=== PATIENT | female | born 1995 | race American Indian/Alaskan Native ===

== ENCOUNTER 2017-02-03 05:28 | Inpatient (IN) ==
[2017-02-03] MEDS ORDERED: HYDROcodone/APAP 5/325MG TABLET PO ONE ×2 (06:15→06:23)
[2017-02-03] MEDS ORDERED: CALCIUM CHLORIDE 1,000 MG/10 ML SYRINGE IV ONE (07:17)
[2017-02-03 07:32] LABS: Basophils # (Auto) 0 K/mcL (0.0-0.3); Basophils % (Auto) 0.5 % (0.0-2.0); Eosinophils # (Auto) 0 K/mcL (0.0-0.7); Eosinophils % (Auto) 0 % (0.0-7.0); Granulocytes % (Auto) 69.5 % (38.0-78.0); Lymphocytes % (Auto) 18.9 % (15.5-49.0); Mean Cell Volume 91.3 fL (80.0-100.0); Mean Corpuscular HGB Conc 33.2 g/dL (31.0-36.0); Mean Corpuscular Hemoglobin 30.3 pg (26.0-34.0); Monocytes # (Auto) 0.6 K/mcL (0.1-0.9); Monocytes % (Auto) 11.1 % (1.0-12.0); Platelet Count 194 K/mcL (140-440); RBC 2.75 M/mcL (4.00-5.20); Red Cell Distribution Width 17.2 % (11.5-14.5)
[2017-02-03] MEDS ORDERED: SODIUM POLYSTYRENE SULFONATE 15 GM/60 ML SUSPENSION ONE (07:46)
[2017-02-03] MEDS ORDERED: HYDROmorphone 2 MG/ML SYRINGE IV PRN ×2 (08:00→11:29)
--- NOTE | 2017-02-03 08:02 | XRay Report ---
CLINICAL INFORMATION: Pain COMPARISON: None. FINDINGS: The thoracic spine is normal in curvature alignment and disc height. There is no osseous abnormality. There appears be a small amount of airspace disease in the posterior lower lobe of the lateral view - suspect scarring or atelectasis IMPRESSION: Thoracic spine is unremarkable. Airspace disease in the posterior lower lobes on the lateral view. This is likely scar or atelectasis - in the absence of clinical suspicion for pneumonia. Consider two-view chest x-ray Interpreted and Authenticated by: Khris Ramey 02/03/17
[2017-02-03 08:03] LABS: ALT/SGPT 22 U/l (0-40); Albumin 3.2 gm/dL (3.2-5.2); Albumin/Globulin Ratio 1.4 (1.0-2.3); Alkaline Phosphatase 84 U/L (39-117); Blood Urea Nitrogen 89 mg/dl (6-20)
[2017-02-03] MEDS ORDERED: ONDANSETRON 4 MG/2 ML VIAL IV ONE (08:08)
[2017-02-03] MEDS ORDERED: cloNIDine HCL 0.1 MG TABLET PO SCH ×2 (08:45→11:29)
[2017-02-03 08:48] LABS: Appearance,Urine HAZY; Bacteria,Urine 0 /hpf (0); Bilirubin,Urine NEG (NEG); Color,Urine YELLOW; Glucose,Urine (UA) 50 mg/dL (NEG); Leukocyte Esterase,Urine NEG /uL (NEG); Mucus,Urine FEW /hpf (0); Nitrate,Urine NEG (NEG); Protein,Urine 100 mg/dL (NEG); Urine Blood 0.03 mg/dL (<0.03); Urine RBC 1 /hpf (0-1); Urine Squamous Epithelial Cell 6 /hpf (0-4); Urine Transitional Epi Cells 1 /hpf (0-2); Urine WBC 3 /hpf (0-4); Urobilinogen,Urine NEG (NEG)
[2017-02-03] MEDS ORDERED: amLODIPine 5 MG TABLET PO SCH (09:00)
[2017-02-03] MEDS ORDERED: SODIUM POLYSTYRENE SULFONATE 15 GM/60 ML SUSPENSION PO SCH (09:00)
--- NOTE | 2017-02-03 09:11 | Emergency Department Note ---
Back Pain HPI - General Chief Complaint: Back Pain/Injury Stated Complaint: leg and back pain Time Seen by Provider: 02/03/17 06:03 Source: patient Mode of arrival: ambulatory Limitations: no limitations - History of Present Illness HPI Narrative: 21-year-old female patient with stage V kidney disease on peritoneal dialysis comes in complaining of back pain. Pain is in her upper back and she denies any trauma-only takes Tylenol for this pain which is acute on chronic. She is tearful. She also reports that she has not done peritoneal dialysis for at least 5 days now because her machine broke. She tried doing manual dialysis but was unable to make that work with her work schedule. She has some shortness of breath and is now requiring oxygen - Related Data Home Medications Medication Instructions Recorded Confirmed levonorgestrel PO ONCE 08/15/16 12/10/16 polysaccharide iron complex 150 mg 150 mg PO QAM cap 08/15/16 12/10/16 iron capsule calcitriol 0.25 mcg capsule 0.25 mcg PO QDAY 08/18/16 12/10/16 lisinopril 10 mg tablet 10 mg PO QDAY 08/18/16 12/10/16 vitamin B complex-vitamin C-folic 1 tab-cap PO QDAY 08/18/16 12/10/16 acid 0.8 mg tablet Sevelamer [Renvela] 1,600 mg PO TIDCC 11/15/16 12/10/16 amlodipine 10 mg tablet 20 mg PO QDAY tab 12/10/16 12/10/16 Previous Rx's Medication Instructions Recorded cholecalciferol (vitamin D3) 50,000 unit PO QWEEK #12 cap 12/10/16 50,000 unit capsule hydroxychloroquine 200 mg tablet 200 mg PO BID #60 tab 12/10/16 prednisone 5 mg tablet See Label Instructions PO QDAY #70 12/10/16 tab Allergies Allergy/AdvReac Type Severity Reaction Status Date / Time No Known Drug Allergies Allergy Verified 12/10/16 13:21 Review of Systems All systems ED: reviewed and negative except as stated. Past Medical History - Past Medical History Attestation: Yes: The following information was validated with the patient. Medical history: Reports: arthritis (SLE), hypertension, renal disease, seizures Surgical history ED: Reports: other (Dialysis catheter) - Social History smoking status: Never smoker Physical Exam Tearful female. Normal cephalic atraumatic. Conjunctive a bit injected bilaterally no nasal discharge but some congestion audible. Oropharynx pink and moist. Neck is supple without lymphadenopathy or thyromegaly. Heart is tachycardic no murmurs appreciated. Lungs with rales bilaterally. Notable hypoxia having to wear oxygen now. +2 pedal pulse. No pedal edema. Depressed mood. Alert oriented able to answer questions appropriately - General Limitations: no limitations Course Vital Signs Temperature 97.4 F 02/03/17 05:30 Pulse Rate 110 H 02/03/17 05:30 Respiratory Rate 20 02/03/17 05:30 Blood Pressure 190/135 02/03/17 05:30 Pulse Oximetry (%) 92 02/03/17 05:30 Temperature 97.4 F 02/03/17 05:30 Pulse Rate 104 H 02/03/17 08:53 Respiratory Rate 18 02/03/17 08:53 Blood Pressure 185/135 02/03/17 08:53 Pulse Oximetry (%) 97 02/03/17 09:00 Back Pain/Injury - Lab Data Lab results reviewed: Yes I reviewed the patient's lab results. Result diagrams: 02/03/17 06:23 02/03/17 06:23 Lab Results 02/03/17 02/03/17 02/03/17 Range/Units 06:23 06:23 06:23 WBC 5.5 (4.5-11.0) K/mcL RBC 2.75 L (4.00-5.20) M/mcL Hgb 8.3 L (12.0-15.0) g/dL Hct 25.1 L (36.0-48.0) % POC Hct 23.0 L (36.0-48.0) % MCV 91.3 (80.0-100.0) fL MCH 30.3 (26.0-34.0) pg MCHC 33.2 (31.0-36.0) g/dL RDW 17.2 H (11.5-14.5) % Plt Count 194 (140-440) K/mcL MPV 8.8 (7.4-10.4) fL Gran % 69.5 (38.0-78.0) % Lymph % (Auto) 18.9 (15.5-49.0) % [place] % (Auto) 11.1 (1.0-12.0) % Eos % (Auto) 0 (0.0-7.0) % Baso % (Auto) 0.5 (0.0-2.0) % Gran # 3.8 (1.8-8.0) K/mcL Lymph # 1.0 L (1.5-4.8) K/mcL [place] # 0.6 (0.1-0.9) K/mcL Eos # 0 (0.0-0.7) K/mcL Baso # 0 (0.0-0.3) K/mcL POC Sodium 125 L (133-145) mmol/L Sodium 127 L (133-145) mmol/L POC Potassium 5.6 H (3.3-5.1) mmol/L Potassium 5.9 H* (3.3-5.1) mmol/L POC Chloride 91 L (96-108) mmol/L Chloride 85 L (96-108) mmol/L Carbon Dioxide 21 L (22-30) mmol/L POC Total CO2 22 (22-30) mmol/L Anion Gap 21.0 H (8-16) POC BUN 100 H (6-20) mg/dl BUN 89 H (6-20) mg/dl Creatinine 16.0 H* (0.6-1.1) mg/dl POC Creatinine 17.7 H* (0.6-1.1) mg/dl GFR Calculation 3 Glucose 84 (70-105) mg/dL POC Glucose 83 (70-105) mg/dL Calcium 10.0 (8.6-10.4) mg/dl POC WB Ioniz Calcium 1.22 (1.16-1.32) mmol/L Magnesium 3.0 H (1.6-2.5) mg/dL Total Bilirubin 0.5 (0.0-1.0) mg/dL AST 24 (0-37) U/l ALT 22 (0-40) U/l Alkaline Phosphatase 84 (39-117) U/L Total Protein 5.5 L (5.9-8.4) gm/dL Albumin 3.2 (3.2-5.2) gm/dL Globulin 2.3 (2.2-3.7) gm/dL Albumin/Globulin Ratio 1.4 (1.0-2.3) Urine Color Urine Appearance Urine pH (5.0-9.0) Ur Specific [place] (1.000-1.035) Urine Protein (NEG) mg/dL Urine Glucose (UA) (NEG) mg/dL Urine Ketones (NEG) mg/dL Urine Occult Blood (<0.03) mg/dL Urine Nitrate (NEG) Urine Bilirubin (NEG) mg/dL Urine Urobilinogen (NEG) mg/dL Ur Leukocyte Esterase (NEG) /uL Urine RBC (0-1) /hpf Urine WBC (0-4) /hpf Ur Squamous Epith Cells (0-4) /hpf Ur Transition Epith Cell (0-2) /hpf Urine Bacteria (0) /hpf Urine Mucus (0) /hpf Ur Culture Indicated? 02/03/17 Range/Units 08:09 WBC (4.5-11.0) K/mcL RBC (4.00-5.20) M/mcL Hgb (12.0-15.0) g/dL Hct (36.0-48.0) % POC Hct (36.0-48.0) % MCV (80.0-100.0) fL MCH (26.0-34.0) pg MCHC (31.0-36.0) g/dL RDW (11.5-14.5) % Plt Count (140-440) K/mcL MPV (7.4-10.4) fL Gran % (38.0-78.0) % Lymph % (Auto) (15.5-49.0) % [place] % (Auto) (1.0-12.0) % Eos % (Auto) (0.0-7.0) % Baso % (Auto) (0.0-2.0) % Gran # (1.8-8.0) K/mcL Lymph # (1.5-4.8) K/mcL [place] # (0.1-0.9) K/mcL Eos # (0.0-0.7) K/mcL Baso # (0.0-0.3) K/mcL POC Sodium (133-145) mmol/L Sodium (133-145) mmol/L POC Potassium (3.3-5.1) mmol/L Potassium (3.3-5.1) mmol/L POC Chloride (96-108) mmol/L Chloride (96-108) mmol/L Carbon Dioxide (22-30) mmol/L POC Total CO2 (22-30) mmol/L Anion Gap (8-16) POC BUN (6-20) mg/dl BUN (6-20) mg/dl Creatinine (0.6-1.1) mg/dl POC Creatinine (0.6-1.1) mg/dl GFR Calculation Glucose (70-105) mg/dL POC Glucose (70-105) mg/dL Calcium (8.6-10.4) mg/dl POC WB Ioniz Calcium (1.16-1.32) mmol/L Magnesium (1.6-2.5) mg/dL Total Bilirubin (0.0-1.0) mg/dL AST (0-37) U/l ALT (0-40) U/l Alkaline Phosphatase (39-117) U/L Total Protein (5.9-8.4) gm/dL Albumin (3.2-5.2) gm/dL Globulin (2.2-3.7) gm/dL Albumin/Globulin Ratio (1.0-2.3) Urine Color Yellow Urine Appearance Hazy Urine pH 8.0 (5.0-9.0) Ur Specific [place] 1.010 (1.000-1.035) Urine Protein 100 A (NEG) mg/dL Urine Glucose (UA) 50 A (NEG) mg/dL Urine Ketones Neg (NEG) mg/dL Urine Occult Blood 0.03 A (<0.03) mg/dL Urine Nitrate Neg (NEG) Urine Bilirubin Neg (NEG) mg/dL Urine Urobilinogen Neg (NEG) mg/dL Ur Leukocyte Esterase Neg (NEG) /uL Urine RBC 1 (0-1) /hpf Urine WBC 3 (0-4) /hpf Ur Squamous Epith Cells 6 H (0-4) /hpf Ur Transition Epith Cell 1 (0-2) /hpf Urine Bacteria 0 (0) /hpf Urine Mucus Few (0) /hpf Ur Culture Indicated? No ABG shows pH 7.51 PCO2 28 and PO2 of 91 - Radiology Data Radiology results reviewed: Yes I reviewed the patient's radiology results. Chest x-ray shows pulmonary venous congestion plus or minus infiltrate- Thoracic spine x-ray shows early osteoarthrosis as well as above-mentioned pulmonary venous congestion - EKG Data EKG attestation: Yes I reviewed and interpreted this EKG. EKG results narrative: EKG shows a rate of 100 with 1 PAC otherwise normal sinus tachycardia Disposition Clinical Impression: Hyperkalemia, Hypermagnesemia, Hypoxia Acute renal failure superimposed on stage 5 chronic kidney disease, not on chronic dialysis Qualifiers: Acute renal failure type: unspecified Qualified Code(s): N17.9 - Acute kidney failure, unspecified; N18.5 - Chronic kidney disease, stage 5 Summary: Thoracic back pain treated with pain medicine. Requiring oxygen now Found to be fluid overloaded missing dialysis-this is causing significant hypoxia and requires emergent dialysis. Also significant electrolyte abnormalities noted. Started medicines for hyperkalemia; however limited as she is not making much urine. Small urine sample obtained by catheterization. Bladder scan revealed no significant urine collection Discussed situation with Dr. Renee agreed to consult on the patient for urgent dialysis. Discussed patient with Dr. Mayer agreed to accept for inpatient care Disposition: Xfer As Inpt ([facility]) Condition: Undetermined Referrals: James Jeter MD [Primary Care Provider] -
--- NOTE | 2017-02-03 11:08 | XRay Report ---
CLINICAL INFORMATION: shortness of breath. History of lupus COMPARISON: None. FINDINGS: The heart is mildly enlarged. Mediastinum and pulmonary vasculature are normal. There are moderate right and small to moderate left bibasilar alveolar infiltrates extending into the bases. Small right pleural effusion is noted. Bones and soft tissues are normal. IMPRESSION: Moderate right and small left basilar infiltrate. Mild enlargement of the cardiac silhouette. With history of lupus, patient could have a pericardial effusion - consider echocardiogram Interpreted and Authenticated by: Khris Ramey 02/03/17
[2017-02-03] MEDS ORDERED: SODIUM POLYSTYRENE SULFONATE 15 GM/60 ML SUSPENSION PO ONE (11:18)
[2017-02-03] MEDS ORDERED: NALOXONE HCL 0.4 MG/ML VIAL IV PRN (11:29)
[2017-02-03] MEDS ORDERED: FUROSEMIDE 100 MG/10 ML VIAL IV ONE (11:52)
[2017-02-03] MEDS: 0.9 % SODIUM CHLORIDE 10 ML SYRINGE IV SCH ×2 (12:12→21:54)
--- NOTE | 2017-02-03 12:58 | Nephrology Consult Note ---
History of Present Illness - Reason for Consult Patient information: Note initiated : 02/03/17 at 12:54 pm Service Date, if different from initiated Date: [] Patient: Tigist Villagomez a 21 y/o F admitted on 02/03/17 for Leg/Back Pain. Chief Complaint: [] Consult date: 02/03/17 end stage renal disease, hyperkalemia Requesting physician: Sarabjit Perales - Chief Complaint back pain - History of Present Illness Ms Villagomez is a 21 y/o female with PMH of ESRD on PD, HTN, SLE and other medical issues who is admitted with pulmonary edema and hyperkalemia Patient initially presented to the ED early this am because of upper back pain that started last night, no h/o trauma. On evaluation patient complained that she has not dialysed since last Thursday because of her cycler broke. She has only one manual exchange since as she works at [employer] and given her work schedule she has not been able to do this She now c/o SOB, LE edema c/o cough with pink colored sputum She denies CP, fever no dizziness does not make much urine She has a h/o non compliance, was hospitalised in November with fluid overload as well from non compliance to PD Review of Systems All systems PM: reviewed and no additional remarkable complaints except as stated ( IN hpi) Past History Past medical history: SLE, also has + MPO antibodies but no e/o vasculitis on renal biopsy per rheumatology notes She has h/o ESRD from lupus and she on PD for this She has h/o uncontrolled HTN, on amlodipine 10mg bid and lsiinopril anemia of CKD renal osteodystrophy Past surgical history: h/o tunneled cath placement h/o PD cath insertion Past family history: father has h/o cancer Past social history: no addictions Medications and Allergies Home Medications Medication Instructions Recorded Confirmed Type levonorgestrel PO ONCE 08/15/16 12/10/16 History polysaccharide iron complex 150 mg 150 mg PO QAM cap 08/15/16 12/10/16 History iron capsule calcitriol 0.25 mcg capsule 0.25 mcg PO QDAY 08/18/16 12/10/16 History lisinopril 10 mg tablet 10 mg PO QDAY 08/18/16 12/10/16 History vitamin B complex-vitamin C-folic 1 tab-cap PO QDAY 08/18/16 12/10/16 History acid 0.8 mg tablet Sevelamer [Renvela] 1,600 mg PO TIDCC 11/15/16 12/10/16 History amlodipine 10 mg tablet 20 mg PO QDAY tab 12/10/16 12/10/16 History cholecalciferol (vitamin D3) 50,000 unit PO QWEEK #12 cap 12/10/16 12/10/16 Rx 50,000 unit capsule hydroxychloroquine 200 mg tablet 200 mg PO BID #60 tab 12/10/16 12/10/16 Rx prednisone 5 mg tablet See Label Instructions PO QDAY #70 12/10/16 12/10/16 Rx tab Allergies Allergy/AdvReac Type Severity Reaction Status Date / Time No Known Drug Allergies Allergy Verified 12/10/16 13:21 Exam - Vital Signs Vital signs: Temp Pulse Resp BP Pulse Ox 97.4 F 111 H 30 H 170/133 92 02/03/17 05:30 02/03/17 11:15 02/03/17 11:15 02/03/17 11:15 02/03/17 11:15 - General Appearance General appearance: appears started age, chronically ill EENT: mucous membranes moist Neck: JVD Respiratory: rales Cardiology: mid-systolic murmur, no rub, edema, normal S1, normal S2 Gastrointestinal: no tenderness (PD exit site look clean with no s/o infection) , no guarding Integumentary: no rash, warm and dry Neurologic: alert and oriented x3 Musculoskeletal: no erythema Psychiatric: mood/affect appropriate Results - Lab Results 02/03/17 06:23 02/03/17 06:23 Most recent lab results Calcium 10.0 mg/dl (8.6-10.4) 02/03/17 06:23 Magnesium 3.0 mg/dL (1.6-2.5) H 02/03/17 06:23 Assessment and Plan (1) ESRD (end stage renal disease) on dialysis ESRD in peritoneal dialysis patient with significant fluid overload with hyperkalemia from non compliance to dialysis given this urgent PD initiated, PD received one exchange with 2.5% dextrose while in PD, we will switch her to cycler and use 4.25% and 2.5% alternate cycle , toal 4 cycles, 9 hour total time on cycler with 1hr 52 min dwell time and fill volume of 2L per pt prescription she has received medications for hyperkalemia, kayexalate and lasix will hold off on lisinopril until K is under control will recheck labs later today will monitor closely if not able to achieve adequate UF will place temp cath and do dialysis uncontrolled HTN: this needs to be better controlled She will continue with home medications will add clonidine or labetalol to her home meds Anemia of CKD: Will monitor she may need aranesp this hospital stay but will obtain work up first Renal osteodystrophy: will continue renvela with meals Status: Acute
[2017-02-03] MEDS ORDERED: niCARdipine 25 MG in 0.9 % SODIUM CHLORIDE 240 ML IV SCH (13:00)
[2017-02-03] MEDS: ONDANSETRON 4 MG/2 ML VIAL IV PRN ×2 (14:11→19:47)
[2017-02-03] MEDS: HYDROmorphone 2 MG/ML SYRINGE IV PRN ×2 (15:31→18:09)
--- NOTE | 2017-02-03 18:11 | Internal Med History&Physical ---
Medical - H&P: HPI Patient information: Note initiated : 02/03/17 at 6:09 pm Service Date, if different from initiated Date: [] Patient: Tigist Villagomez a 21 y/o F admitted on 02/03/17 for Leg/Back Pain. Chief Complaint: [] History of present illness: Ms. Villagomez is a 21 year old female with h/o lupus, presented to the ER today with shortness of breath x 1 day, weakness and swelling. the patient has h/o lupus complicated by renal failure, on dialysis via PD. The patient had PD dialysis on Thursday, after which she broke her machine. She did a manual run on yesterday x1, because she had to work, but since yesterday evening has not been feeling well. she is weak tired, fatigued, feels swollowen. She admits to be nauseas and vomiting x 1. The patient in the ER was noted to have elevated creat, fluid overload with hypoxia, tachypnea. the patient also reports some cough with whitish yellow sputum with some pinkish tinge, but no fever or chills. She has chr lupus related pain in the chest, back and her legs which is unchanged. She denies headache, has chr visual changes, no hearing issues, no difficulty in swallowing, no diarrhea or constipation. She admits to having some urinary urgency and doubts if she has UTI. 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 Medical - H&P: Meds Home Medications Medication Instructions Recorded Confirmed Type levonorgestrel PO ONCE 08/15/16 12/10/16 History polysaccharide iron complex 150 mg 150 mg PO QAM cap 08/15/16 12/10/16 History iron capsule calcitriol 0.25 mcg capsule 0.5 mcg PO DAILY 08/18/16 02/03/17 History lisinopril 10 mg tablet 10 mg PO DAILY 08/18/16 02/03/17 History vitamin B complex-vitamin C-folic 1 tab-cap PO QDAY 08/18/16 02/03/17 History acid 0.8 mg tablet Sevelamer [Renvela] 1,600 mg PO TIDCC 11/15/16 02/03/17 History cholecalciferol (vitamin D3) 50,000 unit PO QWEEK #12 cap 12/10/16 02/03/17 Rx 50,000 unit capsule hydroxychloroquine 200 mg tablet 200 mg PO BID #60 tab 12/10/16 02/03/17 Rx Calcium Carbonate [Tums] 1,000 mg CHEWED TIDCC 02/03/17 02/03/17 History Carboxymethylcellulose Sodium 15 ml OP 3-4XD PRN 02/03/17 02/03/17 History [Lubricant Eye] Docusate Sodium 100 mg PO DAILY 02/03/17 02/03/17 History Furosemide [Lasix] 80 mg PO DAILY 02/03/17 02/03/17 History Mineral Oil/Petrolatum,White 3.5 gm OP HSP PRN 02/03/17 02/03/17 History [Lubricant Eye Ointment] amLODIPine [Norvasc] 5 mg PO DAILY 02/03/17 02/03/17 History Allergies Allergy/AdvReac Type Severity Reaction Status Date / Time No Known Drug Allergies Allergy Verified 12/10/16 13:21 Medical - H&P: Exam - Constitutional Vitals: Temp Pulse Resp BP Pulse Ox 98.7 F 111 H 19 139/99 91 02/03/17 16:00 02/03/17 17:41 02/03/17 18:07 02/03/17 18:01 02/03/17 17:41 Exam: GENERAL: The patient is a well-developed, well-nourished in mild distress. Is alert and oriented x3. VITAL SIGNS: Reviewed and as noted elsewhere. HEENT: Head is normocephalic and atraumatic. Extraocular muscles are intact. Pupils are equal, round, and reactive to light. Nares appeared normal. Mouth appears any without lesions. Mucous membranes are moist. elena puffiness around eyelids NECK: Normal to inspection, Supple, No lymphadenopathy or thyromegaly. LUNGS: Air entry equal on both sides, no wheezing, crackles or rhonchi noted. No accessory muscles of respiration HEART: tachycardic rate and rhythm normal, S1 and S2 heard, no Gallop, S3 or Rub Noted, No Gross murmur heard. ABDOMEN: Soft, nontender, and nondistended. Positive bowel sounds. No hepatosplenomegaly was noted. EXTREMITIES: No cyanosis, clubbing, rash, lesions. Elena edema noted ++ NEUROLOGIC: Cranial nerves II through XII are grossly intact. Motor and Sensory System Grossly Intact PSYCHIATRIC: Normal affect, Normal Mood. Appropriate Behavior. SKIN: No ulceration or wounds noted, No jaundice, No rash noted. Medical - H&P: Reslt - Labs CBC & Chem 7: 02/03/17 06:23 02/03/17 06:23 Medical - H&P: A/P - Narrative A/P Narrative: ESRD: On PD, nephrology consulted, Hypertensive emergency: IV nicardipine drip for now, resume home meds once verified, wean off drip as tolerated. SLE: Resume home meds when verified. patient notes she has not taken prednisone for over 30 days Acute pulmonary edema: Noted on X ray IV lasix, PD initiated by Nephrology Hyperkalemia: medical management and PD Pneumonia: reported on CXR, however pt does have fluid overload too, will get procalcitonin, blood cultures and give one dose of IV zithromax and rocephin, Repeat CXR in AM DVT hep sq Diet Renal diet. Full Code. Medical - H&P: Qual - VTE Deep Vein Thrombosis/Pulmonary Embolism Present on Admission: No Social History - Tobacco smoking status: Never smoker - Alcohol alcohol intake frequency: does not drink - Substance use substance use type: does not use
[2017-02-03] MEDS ORDERED: AZITHROMYCIN 500 MG in DEXTROSE 5% IN WATER 250 ML IV ONE (18:23)
[2017-02-03] MEDS ORDERED: cefTRIAXone 1 GM in DEXTROSE 5% IN WATER 50 ML IV ONE (18:23)
[2017-02-03 18:39] LABS: Blood Urea Nitrogen 81 mg/dl (6-20)
[2017-02-03] MEDS ORDERED: CARBOXYMETHYLCELLULOSE SODIUM OU PRN (19:30)
[2017-02-03] MEDS ORDERED: LUBRICANT EYE OU PRN (19:45)
[2017-02-03] MEDS ORDERED: cefTRIAXone 1 GM VIAL ONE (19:45)
[2017-02-03] MEDS: CARVEDILOL 6.25 MG TABLET PO SCH ×2 (19:47→19:48)
[2017-02-03] MEDS: LISINOPRIL 10 MG TABLET PO SCH (19:47)
[2017-02-03] MEDS: ACETAMINOPHEN 325 MG TABLET PO PRN (19:47)
[2017-02-03] MEDS ORDERED: FAMOTIDINE/PF 20 MG/2 ML VIAL IV SCH (21:00)
[2017-02-03] MEDS: HYDROXYCHLOROQUINE 200 MG TABLET PO SCH (21:04)
[2017-02-03] MEDS: SODIUM POLYSTYRENE SULFONATE 15 GM/60 ML SUSPENSION PO SCH (21:04)
[2017-02-03] MEDS: HEPARIN 5,000 UNIT/ML VIAL SQ SCH (21:04)
[2017-02-03] MEDS ORDERED: PROMETHAZINE 25 MG/ML VIAL IV PRN (21:26)
[2017-02-03] MEDS ORDERED: PROMETHAZINE 25 MG/ML VIAL ONE (21:49)
[2017-02-03] MEDS: PANTOPRAZOLE 40 MG VIAL IV SCH (22:11)
[2017-02-03] MEDS: cloNIDine HCL 0.1 MG TABLET PO PRN (23:50)
[2017-02-04] MEDS: 0.9 % SODIUM CHLORIDE 10 ML SYRINGE IV SCH ×4 (05:27→20:55)
[2017-02-04 05:33] LABS: Basophils # (Auto) 0 K/mcL (0.0-0.3); Basophils % (Auto) 0.5 % (0.0-2.0); Eosinophils # (Auto) 0 K/mcL (0.0-0.7); Eosinophils % (Auto) 0 % (0.0-7.0); Granulocytes % (Auto) 76.6 % (38.0-78.0); Lymphocytes # (Auto) 0.6 K/mcL (1.5-4.8); Lymphocytes % (Auto) 14.6 % (15.5-49.0); Mean Cell Volume 91.2 fL (80.0-100.0); Monocytes # (Auto) 0.3 K/mcL (0.1-0.9); Monocytes % (Auto) 8.3 % (1.0-12.0); Platelet Count 198 K/mcL (140-440); RBC 2.53 M/mcL (4.00-5.20); Red Cell Distribution Width 17.1 % (11.5-14.5)
[2017-02-04 06:47] LABS: ALT/SGPT 18 U/l (0-40); Albumin 2.9 gm/dL (3.2-5.2); Albumin/Globulin Ratio 1.4 (1.0-2.3); Alkaline Phosphatase 48 U/L (39-117); Bilirubin,Direct 0.2 mg/dL (0.0-0.3); Blood Urea Nitrogen 75 mg/dl (6-20); Gamma Glutamyl Transpeptidase 14 U/L (5-36); Magnesium 2.7 mg/dL (1.6-2.5); Uric Acid 4.3 mg/dL (2.5-8.0)
[2017-02-04] MEDS: PANTOPRAZOLE 40 MG VIAL IV SCH (08:29)
--- NOTE | 2017-02-04 08:33 | Nephrology Progress Note ---
Subjective Patient information: Note initiated : 02/04/17 at 8:30 am Service Date, if different from initiated Date: [] Patient: Tigist Villagomez 21 y/o F admitted on 02/03/17 for Leg/Back Pain. Chief Complaint: [] Principal diagnosis: fluid overload Interval history: PD done yesterday, 2400cc net UF achieved Patient feeling much better today She denies worsening SOB, edema much improved BP control still an issues but did not get a lot of her meds no CP No GI symptoms no dizziness Pertinent ROS: as above Objective - Vital Signs Vital signs: Vital Signs Temp Pulse Pulse Resp BP BP Pulse Ox 02/04/17 06:55 98 H 19 97 02/04/17 06:01 102 H 21 151/114 92 02/04/17 06:00 102 H 16 151/114 93 02/04/17 05:01 95 H 17 149/108 90 02/04/17 05:00 98 H 14 149/108 94 02/04/17 04:31 98 H 23 H 142/106 92 02/04/17 04:01 98 H 16 138/108 88 L 02/04/17 04:00 97.9 F 97 H 18 138/108 94 02/04/17 03:31 93 H 15 133/106 92 02/04/17 03:01 93 H 15 140/104 94 02/04/17 03:00 93 H 16 140/104 93 02/04/17 02:31 90 16 131/98 93 02/04/17 02:01 87 15 128/96 96 02/04/17 02:00 89 16 128/96 93 02/04/17 01:31 88 15 125/96 94 02/04/17 01:01 88 15 127/97 95 02/04/17 01:00 88 16 127/97 95 02/04/17 00:31 100 H 19 147/121 100 02/04/17 00:00 98.7 F 102 H 20 147/121 100 02/03/17 23:46 142/112 02/03/17 23:31 91 H 12 157/121 100 02/03/17 23:01 88 16 141/111 97 02/03/17 23:00 91 H 14 141/111 99 02/03/17 22:51 92 H 24 H 143/110 93 02/03/17 22:00 94 H 17 143/110 95 05/23/17 21:01 99 H 13 120/94 91 02/03/17 21:00 101 H 17 120/94 91 02/03/17 20:31 113 H 19 142/115 100 02/03/17 20:01 106 H 17 140/107 98 02/03/17 20:00 98.2 F 107 H 18 140/107 97 02/03/17 19:21 109 H 17 144/110 97 02/03/17 19:11 111 H 20 145/108 92 02/03/17 19:01 111 H 26 H 133/98 95 02/03/17 19:00 113 H 21 133/98 90 02/03/17 18:55 115 H 17 140/106 93 02/03/17 18:41 114 H 17 149/106 95 02/03/17 18:31 113 H 19 140/109 89 L 02/03/17 18:21 22 144/101 02/03/17 18:11 19 143/108 02/03/17 18:07 19 02/03/17 18:01 139/99 02/03/17 18:00 18 139/99 91 02/03/17 17:56 19 139/99 02/03/17 17:55 20 02/03/17 17:51 21 143/104 02/03/17 17:41 111 H 18 142/104 91 02/03/17 17:31 109 H 20 145/107 92 02/03/17 17:21 111 H 21 143/107 92 02/03/17 17:11 115 H 20 138/99 96 02/03/17 17:01 113 H 19 142/100 91 02/03/17 17:00 20 142/100 91 02/03/17 16:51 114 H 19 139/102 91 02/03/17 16:41 114 H 19 144/97 91 02/03/17 16:31 115 H 19 145/100 90 02/03/17 16:21 114 H 20 147/104 91 02/03/17 16:11 112 H 24 H 149/109 94 02/03/17 16:08 110 H 22 91 02/03/17 16:07 114 H 26 H 88 L 02/03/17 16:06 110 H 32 H 94 02/03/17 16:01 105 H 17 167/115 93 02/03/17 16:00 98.7 F 16 167/115 90 02/03/17 15:51 107 H 24 H 168/120 91 02/03/17 15:41 109 H 16 168/125 93 02/03/17 15:36 106 H 23 H 155/112 96 02/03/17 15:31 106 H 20 160/116 94 02/03/17 15:26 109 H 20 160/112 86 L 02/03/17 15:21 111 H 26 H 147/117 89 L 02/03/17 15:16 109 H 22 152/119 92 02/03/17 15:11 109 H 21 153/115 93 02/03/17 15:10 20 145/108 92 02/03/17 15:06 113 H 21 143/107 92 02/03/17 15:01 113 H 26 H 145/108 95 02/03/17 14:56 114 H 20 139/103 93 02/03/17 14:51 110 H 17 147/112 94 02/03/17 14:46 109 H 17 146/108 95 02/03/17 14:41 108 H 18 152/114 95 02/03/17 14:36 106 H 20 160/119 96 02/03/17 14:33 107 H 19 155/121 95 02/03/17 14:31 109 H 19 154/115 95 02/03/17 14:16 112 H 20 156/118 89 L 02/03/17 14:11 122 H 33 H 148/109 87 L 02/03/17 14:07 124 H 15 149/108 80 L 02/03/17 14:00 20 142/108 02/03/17 13:56 33 H 142/108 02/03/17 13:52 113 H 21 156/113 88 L 02/03/17 13:49 111 H 22 155/115 88 L 02/03/17 13:46 111 H 22 156/121 89 L 02/03/17 13:42 104 H 21 176/131 91 02/03/17 13:40 105 H 22 178/132 90 02/03/17 13:39 104 H 21 177/127 91 02/03/17 13:31 103 H 23 H 174/131 90 02/03/17 13:16 105 H 22 175/126 87 L 02/03/17 13:01 104 H 22 171/133 92 02/03/17 13:00 22 171/133 91 02/03/17 12:46 106 H 26 H 169/132 91 02/03/17 12:31 110 H 24 H 178/132 82 L 02/03/17 12:16 102 H 22 174/124 90 02/03/17 12:01 106 H 22 174/132 92 02/03/17 12:00 98.0 F 174/124 92 02/03/17 11:46 104 H 18 169/129 90 02/03/17 11:31 107 H 21 176/130 95 Intake and Output 02/03/17 02/04/17 02/04/17 21:59 05:59 13:59 Intake Total 125 / 125 720 / 720 Output Total Balance 124 / 124 720 / 720 Intake: IV 125 / 125 Cardene 25 MG In Sodium 125 / 125 Chloride 0.9% 240 ml @ 5 MG/HR 50 mls/hr IV ONCE RAÚL Rx#:[id number] Oral 0 / 0 720 / 720 Output: Void Amount 0 / 0 # of times incontinent of / 1 urine Other: Net Peritoneal UF 2400 Weight 121 lb 3.2 oz Intake & Output: Intake & Output 02/03/17 02/04/17 02/04/17 21:59 05:59 13:59 Intake Total 125 / 125 720 / 720 Output Total Balance 124 / 124 720 / 720 Weight 121 lb 3.2 oz Intake: IV 125 / 125 Cardene 25 MG In Sodium 125 / 125 Chloride 0.9% 240 ml @ 5 MG/HR 50 mls/hr IV ONCE RAÚL Rx#:[id number] Oral 0 / 0 720 / 720 Output: Void Amount 0 / 0 # of times incontinent of 1 / 1 urine Other: Net Peritoneal UF 2400 - General Appearance General appearance: appears started age, chronically ill EENT: mucous membranes moist Neck: no JVD Respiratory: clear Cardiology: no rub, no edema, normal S1, normal S2 Gastrointestinal: no tenderness, no guarding Integumentary: no rash, warm and dry Neurologic: alert and oriented x3 Musculoskeletal: no deformities, no erythema Psychiatric: mood/affect appropriate - Lab 02/04/17 04:04 02/04/17 04:04 Most recent lab results Calcium 8.9 mg/dl (8.6-10.4) 02/04/17 04:04 Phosphorus 6.1 mg/dL (2.7-4.5) H* 02/04/17 04:04 Magnesium 2.7 mg/dL (1.6-2.5) H 02/04/17 04:04 Assessment and Plan (1) ESRD (end stage renal disease) on dialysis Patient on peritoneal dialysis with issues with non compliance states misses PD on and off because of work issues or at times have to cut short on treatment Her fluid status is a little better today K still 5.5, on ACEI BP control still suboptimal Patient also has anemia with mild leucopenia: will obtain work up and also confirm no ongoing lupus activity as she is off steroids, has leucopenia and anemia plan: PD today again, will use on 3 cycles of 2.5% and one cycle of 4.25% on cycler with fill volume of 2L, dwell time of 1hr 52 min and total time of 9 hrs Will obtain anemia work up will continue with lisinopril, coreg and amlodipine today and follow BP and optimize meds if needed if continues to have persistent hyperkalemia then will consider holding lisinopril monitor I/O, daily weights dose meds per PD Will follow along Appreciate hospitalist help in managing this patient Status: Acute
[2017-02-04] MEDS: CALCITRIOL 0.25 MCG CAPSULE PO SCH (08:46)
[2017-02-04] MEDS: SEVELAMER 800 MG TABLET PO SCH ×3 (08:47→16:54)
[2017-02-04] MEDS: FUROSEMIDE 40 MG TABLET PO SCH (08:47)
[2017-02-04] MEDS: CARVEDILOL 6.25 MG TABLET PO SCH ×2 (08:47→16:56)
[2017-02-04] MEDS: HYDROXYCHLOROQUINE 200 MG TABLET PO SCH ×2 (08:47→20:54)
[2017-02-04] MEDS: CALCIUM CARBONATE 500 MG TAB.CHEW CHEWED SCH ×3 (08:48→16:54)
[2017-02-04] MEDS: amLODIPine 5 MG TABLET PO SCH (08:48)
[2017-02-04] MEDS: HEPARIN 5,000 UNIT/ML VIAL SQ SCH ×2 (08:48→20:54)
--- NOTE | 2017-02-04 08:48 | XRay Report ---
CLINICAL INFORMATION: Follow up infiltrate COMPARISON: 02/03/2017 FINDINGS: Mild enlargement of the cardiac silhouette is unchanged. The mediastinum and pulmonary vessels are normal. Bilateral mid/lower lung infiltrates have improved markedly since previous study with minimal vague residual. Small bilateral pleural effusions persist. IMPRESSION: Marked improvement in bilateral mid/lower lung infiltrates since yesterday's study Mild enlargement of the cardiac silhouette is stable. No evidence of CHF or volume overload Interpreted and Authenticated by: Khris Ramey 02/04/17
[2017-02-04] MEDS: DOCUSATE SODIUM 100 MG CAPSULE PO SCH (08:50)
[2017-02-04] MEDS: SODIUM POLYSTYRENE SULFONATE 15 GM/60 ML SUSPENSION PO SCH (08:50)
[2017-02-04] MEDS: LISINOPRIL 10 MG TABLET PO SCH (08:54)
[2017-02-04] MEDS: cefTRIAXone 1 GM in DEXTROSE 5% IN WATER 50 ML IV SCH (08:57)
[2017-02-04] MEDS ORDERED: LISINOPRIL 10 MG TABLET PO SCH (09:00)
[2017-02-04 09:49] LABS: Complement C3 59.6 mg/dl (90-180)
[2017-02-04 09:51] LABS: Iron 80 mcg/dl (37-145); Transferrin % Saturation 60 % (15-50); Unsaturated Iron Binding 53 mcg/dL (112-346)
[2017-02-04 09:58] LABS: Ferritin 909.5 ng/ml (13-150)
[2017-02-04 10:07] LABS: Vitamin B12 286.7 pg/ml (243-894)
[2017-02-04] MEDS: FOLIC ACID/VITAMIN B COMP W-C 1 TAB TABLET PO SCH (11:52)
[2017-02-04] MEDS: AZITHROMYCIN 250 MG in DEXTROSE 5% IN WATER 250 ML IV SCH (11:53)
[2017-02-04] MEDS: ACETAMINOPHEN 325 MG TABLET PO PRN (20:54)
[2017-02-04] MEDS: HYDROmorphone 2 MG/ML SYRINGE IV PRN (22:41)
[2017-02-04] MEDS: cloNIDine HCL 0.1 MG TABLET PO PRN (23:02)
[2017-02-05] MEDS: HYDROmorphone 2 MG/ML SYRINGE IV PRN ×2 (04:16→09:22)
[2017-02-05 05:36] LABS: Basophils # (Auto) 0 K/mcL (0.0-0.3); Basophils % (Auto) 0.6 % (0.0-2.0); Eosinophils # (Auto) 0 K/mcL (0.0-0.7); Eosinophils % (Auto) 0 % (0.0-7.0); Lymphocytes # (Auto) 0.9 K/mcL (1.5-4.8); Lymphocytes % (Auto) 31.1 % (15.5-49.0); Mean Cell Volume 92.1 fL (80.0-100.0); Mean Corpuscular HGB Conc 33.5 g/dL (31.0-36.0); Mean Corpuscular Hemoglobin 30.8 pg (26.0-34.0); Monocytes # (Auto) 0.4 K/mcL (0.1-0.9); Monocytes % (Auto) 13.3 % (1.0-12.0); Platelet Count 182 K/mcL (140-440); RBC 2.48 M/mcL (4.00-5.20); Red Cell Distribution Width 17.5 % (11.5-14.5)
[2017-02-05] MEDS: 0.9 % SODIUM CHLORIDE 10 ML SYRINGE IV SCH ×3 (05:43→21:30)
[2017-02-05 06:16] LABS: ALT/SGPT 18 U/l (0-40); Albumin/Globulin Ratio 1.4 (1.0-2.3); Alkaline Phosphatase 47 U/L (39-117); Bilirubin,Direct 0.2 mg/dL (0.0-0.3); Blood Urea Nitrogen 71 mg/dl (6-20); Gamma Glutamyl Transpeptidase 15 U/L (5-36); Magnesium 2.6 mg/dL (1.6-2.5); Uric Acid 4.8 mg/dL (2.5-8.0)
[2017-02-05] MEDS: DOCUSATE SODIUM 100 MG CAPSULE PO SCH (08:42)
[2017-02-05] MEDS: SEVELAMER 800 MG TABLET PO SCH ×4 (08:47→21:29)
[2017-02-05] MEDS: PANTOPRAZOLE 40 MG VIAL IV SCH (08:47)
[2017-02-05] MEDS: CALCIUM CARBONATE 500 MG TAB.CHEW CHEWED SCH ×4 (08:47→21:29)
[2017-02-05] MEDS: CARVEDILOL 12.5 MG TABLET PO SCH ×2 (09:02→17:54)
[2017-02-05] MEDS: LISINOPRIL 10 MG TABLET PO SCH (09:02)
[2017-02-05] MEDS: HEPARIN 5,000 UNIT/ML VIAL SQ SCH ×2 (09:02→21:29)
[2017-02-05] MEDS: amLODIPine 5 MG TABLET PO SCH (09:02)
[2017-02-05] MEDS: FUROSEMIDE 40 MG TABLET PO SCH (09:06)
[2017-02-05] MEDS: CALCITRIOL 0.25 MCG CAPSULE PO SCH (09:06)
[2017-02-05] MEDS: HYDROXYCHLOROQUINE 200 MG TABLET PO SCH ×2 (09:06→21:29)
[2017-02-05] MEDS: FOLIC ACID/VITAMIN B COMP W-C 1 TAB TABLET PO SCH (09:07)
[2017-02-05] MEDS: cefTRIAXone 1 GM in DEXTROSE 5% IN WATER 50 ML IV SCH (09:07)
[2017-02-05] MEDS: CARVEDILOL 6.25 MG TABLET PO SCH (09:08)
[2017-02-05] MEDS: AZITHROMYCIN 250 MG in DEXTROSE 5% IN WATER 250 ML IV SCH (10:00)
[2017-02-05 10:30] LABS: Retic Absolute 0.4 % (0.5-1.5)
[2017-02-05 10:44] LABS: Haptoglobin 133 mg/dl (30-200)
--- NOTE | 2017-02-05 11:22 | Internal Med Progress Note ---
Medical - PN: Subj Patient information: Note initiated : 02/05/17 at 11:21 am Service Date, if different from initiated Date: [ 02/04/2017] Patient: Tigist Villagomez 21 y/o F admitted on 02/03/17 for Hyperkalemia, Hypermagnesemia, Hypoxia. Chief Complaint: [] Interval history: Ms. Villagomez is a 21 year old female with h/o lupus, presented to the ER today with shortness of breath x 1 day, weakness and swelling. the patient has h/o lupus complicated by renal failure, on dialysis via PD. The patient had PD dialysis on Thursday, after which she broke her machine. She did a manual run on yesterday x1, because she had to work, but since yesterday evening has not been feeling well. she is weak tired, fatigued, feels swollowen. She admits to be nauseas and vomiting x 1. The patient in the ER was noted to have elevated creat, fluid overload with hypoxia, tachypnea. the patient also reports some cough with whitish yellow sputum with some pinkish tinge, but no fever or chills. She has chr lupus related pain in the chest, back and her legs which is unchanged. She denies headache, has chr visual changes, no hearing issues, no difficulty in swallowing, no diarrhea or constipation. She admits to having some urinary urgency and doubts if she has UTI. 02/04. Pt seen examined, ovenight events noted, she had few episodes of nausea and vomiting overnight, not responding to zofran but improved with phenergan. The patient was on nicardipine drip for Hypertensive emergency, which was gradually weaned off with initiaiton of home meds, lisinopril held in light of hyperkalemia. Pt otherwise doing well this AM, no new complaints. no fever, Repeat CXR planned today Continue antbiotics she continues on PD as per nephrology. Pertinent ROS: Denies headache, dizziness Denies chest pain, palpitations Denies cough or shortness of breath Present, nausea and vomiting. No abdominal pain. - Constitutional Vitals: Vital Signs Temp Pulse Resp BP Pulse Ox 98.0 F 88 16 137/104 92 02/05/17 03:56 02/05/17 05:00 02/05/17 06:00 02/05/17 06:00 02/05/17 06:00 Period Temp Pulse Resp BP Sys/Goldstein Pulse Ox Last 24 Hr 98.0 F-99.3 F 80-115 14-26 122-164/95-128 89-100 Intake and Output 02/04/17 02/05/17 02/05/17 21:59 05:59 13:59 Intake Total 220 / 220 1020 / 1020 50 / 50 Output Total 200 / 200 Balance 20 / 20 1020 / 1020 50 / 50 Weight 114 lb Intake & Output: Intake & Output 02/04/17 02/05/17 02/05/17 21:59 05:59 13:59 Intake Total 220 / 220 1020 / 1020 50 / 50 Output Total 200 / 200 Balance 20 / 20 1020 / 1020 50 / 50 Weight 114 lb Intake: IV 300 / 300 50 / 50 Zithromax 250 mg In 250 / 250 Dextrose 5% in Water 250 ml @ 250 mls/hr IV Q24H RAÚL Rx#:[id number] Rocephin 1 gm In Dextrose 50 / 50 50 / 50 5% in Water 50 ml @ 100 mls/hr IV Q24H RAÚL Rx#: [id number] Oral 220 / 220 720 / 720 Output: Urine/Stool Mix 200 / 200 Other: Meal Dinner Percent of Meal Consumed 50% Feeding Ability Assist with Tray Set Up # Voids 1 # Bowel Movements 1 Exam: Constitutional; Afebrile, cooperative, alert, not in distress. Eyes- No icterus, , No periorbital swelling Ears- Ext ear normal, hearing normal to conversation. Neck- Midline trachea, supple Respiratory system: Air Entry equal on both sides, No crackles or wheezing, no rhonchi. CVS- Rate rhythm regular, S1,S2 heard, no gallop, no rub. Abdomen- Soft nontender abdomen, no organomegaly, no tenderness, no guarding or rigidity, ROSS LIFT OPERATOR- AOOx3, moving all extremities, no gross focal deficit noted. Medical - PN: Obj Da - Labs CBC & Chem 7: 02/05/17 03:48 02/05/17 03:48 Labs: Abnormal Lab Results 02/05/17 02/05/17 02/05/17 09:55 03:48 03:48 WBC RBC Hgb Hct RDW Lymph % (Auto) [place] % (Auto) Gran # Lymph # ESR 48 H Absolute Retic 0.4 L Sodium Potassium Chloride 90 L Anion Gap 18.0 H BUN 71 H Creatinine 16.0 H* Glucose Phosphorus 5.6 H Magnesium 2.6 H TIBC Unsat Iron Binding Transferrin % Sat Ferritin Total Protein 5.1 L Albumin 3.0 L Globulin 2.1 L Complement C3 Complement C4 02/05/17 02/04/17 02/04/17 03:48 08:39 08:39 WBC 3.0 L RBC 2.48 L Hgb 7.6 L Hct 22.8 L RDW 17.5 H Lymph % (Auto) [place] % (Auto) 13.3 H Gran # 1.7 L Lymph # 0.9 L ESR Absolute Retic Sodium Potassium Chloride Anion Gap BUN Creatinine Glucose Phosphorus Magnesium TIBC 133 L Unsat Iron Binding 53 L Transferrin % Sat 60 H Ferritin 909.5 H Total Protein Albumin Globulin Complement C3 59.6 L Complement C4 14.9 L 02/04/17 02/04/17 02/03/17 04:04 04:04 17:46 WBC 3.9 L RBC 2.53 L Hgb 7.9 L Hct 23.1 L RDW 17.1 H Lymph % (Auto) 14.6 L Comal % (Auto) Gran # Lymph # 0.6 L ESR Absolute Retic Sodium 131 L Potassium 5.5 H Chloride 91 L 87 L Anion Gap 19.0 H 20.0 H BUN 75 H 81 H Creatinine 16.1 H* 15.9 H* Glucose 162 H Phosphorus 6.1 H* Magnesium 2.7 H TIBC Unsat Iron Binding Transferrin % Sat Ferritin Total Protein 5.0 L Albumin 2.9 L Globulin 2.1 L Complement C3 Complement C4 Meds: Medications Acetaminophen (Tylenol) 650 mg PO Q4-6HP PRN PRN Reason: PAIN/FEVER > 101 Last Admin: 02/04/17 20:54 Dose: 650 mg Amlodipine Besylate (Norvasc) 10 mg PO DAILY [facility] Last Admin: 02/05/17 09:02 Dose: 10 mg Calcitriol (Rocaltrol) 0.5 mcg PO DAILY [facility] Last Admin: 02/05/17 09:06 Dose: 0.5 mcg Calcium Carbonate/Glycine (Tums) 1,000 mg CHEWED TIDCC [facility] Last Admin: 02/05/17 08:47 Dose: 1,000 mg [facility] Last Admin: 02/05/17 09:02 Dose: 12.5 mg Clonidine HCl (Catapres) 0.1 mg PO Q4HP PRN PRN Reason: Hypertension Last Admin: 02/04/17 23:02 Dose: 0.1 mg Docusate Sodium (Colace) 100 mg PO DAILY [facility] Last Admin: 02/05/17 08:42 Dose: Not Given Ergocalciferol (Drisdol) 50,000 unit PO Q30D [facility] Furosemide (Lasix) 80 mg PO DAILY [facility] Last Admin: 02/05/17 09:06 Dose: 80 mg Heparin Sodium (Porcine) (Heparin) 5,000 unit SQ Q12 [facility] Last Admin: 02/05/17 09:02 Dose: 5,000 unit Hydromorphone HCl (Dilaudid) 0.5 mg IV Q2HP PRN PRN Reason: Pain Last Admin: 02/05/17 09:22 Dose: 0.5 mg Hydroxychloroquine Sulfate (Plaquenil) 200 mg PO BID [facility] Last Admin: 02/05/17 09:06 Dose: 200 mg Azithromycin 250 mg/ Dextrose 250 mls @ 250 mls/hr IV Q24H [facility] Stop: 02/06/17 10:59 Last Admin: 02/05/17 10:00 Dose: 250 mls/hr Ceftriaxone Sodium 1 gm/ (Dextrose) 50 mls @ 100 mls/hr IV Q24H [facility] Last Infusion: 02/05/17 09:45 Dose: Infused Lisinopril (Zestril) 10 mg PO DAILY [facility] Last Admin: 02/05/17 09:02 Dose: 10 mg Multivit/Ca Carb/B Cmplx/FA/Prenat (Diatx) 1 tab PO DAILY [facility] Last Admin: 02/05/17 09:07 Dose: 1 tab Naloxone HCl (Narcan) 0.1 mg IV Q2MIN PRN PRN Reason: Opiate Reversal Ondansetron HCl (Zofran) 4 mg IV Q4-6HP PRN PRN Reason: Nausea And Vomiting Last Admin: 02/03/17 19:47 Dose: 4 mg Pantoprazole Sodium (Protonix) 40 mg IV QAMAC [facility] Last Admin: 02/05/17 08:47 Dose: 40 mg Carboxymethylcellulo se Sodium [Lubricant Eye Gtt] 1 dose OU QIDP PRN PRN Reason: DRY EYES [Lubricant Eye (Ointment]) 1 dose OU HSP PRN PRN Reason: DRY EYES Promethazine HCl (Phenergan) 12.5 mg IV Q4-6HP PRN PRN Reason: Nausea And Vomiting Last Admin: 02/03/17 21:49 Dose: 12.5 mg Sevelamer Carbonate (Renvela) 1,600 mg PO TIDCC [facility] Last Admin: 02/05/17 08:47 Dose: 1,600 mg Sodium Chloride (Saline Flush) 10 ml IV Q8 [facility] Last Admin: 02/05/17 05:43 Dose: 10 ml - Impressions Labs for 02/04 reviewed Medical - PN: A/P - Time Spent With Patient Total time spent is greater than 50% in coordination of care (as documented) at patient's floor/unit and/or counseling patient: - Narrative A/P Narrative: ESRD: On PD, nephrology consulted, on PD Hypertensive emergency: IV nicardipine drip for now, resume home med, increased dose of amlodpine to 10mg qd, coreg started. monitor BP wean off nicardipine drip. Anemia: dropping hb, workup pending, followed by nephrology. 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 patient notes she has not taken prednisone for over 30 days, continue hydroxychlorozine Acute pulmonary edema: Noted on X ray IV lasix, PD initiated by Nephrology, off oxygen this AM Hyperkalemia: medical management and PD, resolved Pneumonia: reported on CXR, however pt does have fluid overload too, procalcitonin is high, on IV rocephin and zithromax, DVT hep sq Diet Renal diet. Full Code. Medical - PN: Qual - VTE Deep Vein Thrombosis/Pulmonary Embolism Present on Admission: No
--- NOTE | 2017-02-05 11:31 | Internal Med Progress Note ---
Medical - PN: Subj Patient information: Note initiated : 02/05/17 at 11:28 am Service Date, if different from initiated Date: [] Patient: Tigist Villagomez a 21 y/o F admitted on 02/03/17 for Hyperkalemia, Hypermagnesemia, Hypoxia. Chief Complaint: [] Interval history: Ms. Villagomez is a 21 year old female with h/o lupus, presented to the ER today with shortness of breath x 1 day, weakness and swelling. the patient has h/o lupus complicated by renal failure, on dialysis via PD. The patient had PD dialysis on Thursday, after which she broke her machine. She did a manual run on yesterday x1, because she had to work, but since yesterday evening has not been feeling well. she is weak tired, fatigued, feels swollowen. She admits to be nauseas and vomiting x 1. The patient in the ER was noted to have elevated creat, fluid overload with hypoxia, tachypnea. the patient also reports some cough with whitish yellow sputum with some pinkish tinge, but no fever or chills. She has chr lupus related pain in the chest, back and her legs which is unchanged. She denies headache, has chr visual changes, no hearing issues, no difficulty in swallowing, no diarrhea or constipation. She admits to having some urinary urgency and doubts if she has UTI. 02/04. Pt seen examined, ovenight events noted, she had few episodes of nausea and vomiting overnight, not responding to zofran but improved with phenergan. The patient was on nicardipine drip for Hypertensive emergency, which was gradually weaned off with initiaiton of home meds, lisinopril held in light of hyperkalemia. Pt otherwise doing well this AM, no new complaints. no fever, Repeat CXR planned today Continue antbiotics she continues on PD as per nephrology. 02/05: Pt seen examined, this AM no acute overnight issues, pt did not have any nausea or vomiting reported, slept ok, continues to be on PD. Her wbc count and hb continues to drop. I reviewed the case with nephrology and rheumatology, Dr Roy (rheumatolgoy) will be seeing the patient tomorrow. As per his note and direct communication with him the patient should be on prednisone 10mg, pt is however not taking this medication and thinks she was asked to wean it off. The patient also declined to resume this medication. Given drop in hb, workup for hemolysis sent will follow microbiology is neg, continue antibiotics for presumed pna. Pertinent ROS: Denies headache, dizziness Denies chest pain, palpitations Denies cough or shortness of breath Denies abdominal pain, nausea or vomiting. - Constitutional Vitals: Vital Signs Temp Pulse Resp BP Pulse Ox 98.0 F 88 16 137/104 92 02/05/17 03:56 02/05/17 05:00 02/05/17 06:00 02/05/17 06:00 02/05/17 06:00 Period Temp Pulse Resp BP Sys/Goldstein Pulse Ox Last 24 Hr 98.0 F-99.3 F 80-115 14-26 122-164/95-128 89-100 Intake and Output 02/04/17 02/05/17 02/05/17 21:59 05:59 13:59 Intake Total 220 / 220 1020 / 1020 50 / 50 Output Total 200 / 200 Balance 20 / 20 1020 / 1020 50 / 50 Weight 114 lb Intake & Output: Intake & Output 02/04/17 02/05/17 02/05/17 21:59 05:59 13:59 Intake Total 220 / 220 1020 / 1020 50 / 50 Output Total 200 / 200 Balance 20 / 20 1020 / 1020 50 / 50 Weight 114 lb Intake: IV 300 / 300 50 / 50 Zithromax 250 mg In 250 / 250 Dextrose 5% in Water 250 ml @ 250 mls/hr IV Q24H RAÚL Rx#:[id number] Rocephin 1 gm In Dextrose 50 / 50 50 / 50 5% in Water 50 ml @ 100 mls/hr IV Q24H RAÚL Rx#: [id number] Oral 220 / 220 720 / 720 Output: Urine/Stool Mix 200 / 200 Other: Meal Dinner Percent of Meal Consumed 50% Feeding Ability Assist with Tray Set Up # Voids 1 # Bowel Movements 1 Exam: Constitutional; Afebrile, cooperative, alert, not in distress. Eyes- No icterus, , No periorbital swelling Ears- Ext ear normal, hearing normal to conversation. Neck- Midline trachea, supple Respiratory system: Air Entry equal on both sides, No crackles or wheezing, no rhonchi. CVS- Rate rhythm regular, S1,S2 heard, no gallop, no rub. Abdomen- Soft nontender abdomen, no organomegaly, no tenderness, no guarding or rigidity, [employer]- AOOx3, moving all extremities, no gross focal deficit noted. Medical - PN: Obj Da - Labs CBC & Chem 7: 02/05/17 03:48 02/05/17 03:48 Labs: Abnormal Lab Results 02/05/17 02/05/17 02/05/17 09:55 03:48 03:48 WBC RBC Hgb Hct RDW Lymph % (Auto) Sutton % (Auto) Gran # Lymph # ESR 48 H Absolute Retic 0.4 L Sodium Potassium Chloride 90 L Anion Gap 18.0 H BUN 71 H Creatinine 16.0 H* Glucose Phosphorus 5.6 H Magnesium 2.6 H TIBC Unsat Iron Binding Transferrin % Sat Ferritin Total Protein 5.1 L Albumin 3.0 L Globulin 2.1 L Complement C3 Complement C4 02/05/17 02/04/17 02/04/17 03:48 08:39 08:39 WBC 3.0 L RBC 2.48 L Hgb 7.6 L Hct 22.8 L RDW 17.5 H Lymph % (Auto) Sutton % (Auto) 13.3 H Gran # 1.7 L Lymph # 0.9 L ESR Absolute Retic Sodium Potassium Chloride Anion Gap BUN Creatinine Glucose Phosphorus Magnesium TIBC 133 L Unsat Iron Binding 53 L Transferrin % Sat 60 H Ferritin 909.5 H Total Protein Albumin Globulin Complement C3 59.6 L Complement C4 14.9 L 02/04/17 02/04/17 02/03/17 04:04 04:04 17:46 WBC 3.9 L RBC 2.53 L Hgb 7.9 L Hct 23.1 L RDW 17.1 H Lymph % (Auto) 14.6 L Sutton % (Auto) Gran # Lymph # 0.6 L ESR Absolute Retic Sodium 131 L Potassium 5.5 H Chloride 91 L 87 L Anion Gap 19.0 H 20.0 H BUN 75 H 81 H Creatinine 16.1 H* 15.9 H* Glucose 162 H Phosphorus 6.1 H* Magnesium 2.7 H TIBC Unsat Iron Binding Transferrin % Sat Ferritin Total Protein 5.0 L Albumin 2.9 L Globulin 2.1 L Complement C3 Complement C4 Meds: Medications Acetaminophen (Tylenol) 650 mg PO Q4-6HP PRN PRN Reason: PAIN/FEVER > 101 Last Admin: 02/04/17 20:54 Dose: 650 mg Amlodipine Besylate (Norvasc) 10 mg PO DAILY [facility] Last Admin: 02/05/17 09:02 Dose: 10 mg Calcitriol (Rocaltrol) 0.5 mcg PO DAILY [facility] Last Admin: 02/05/17 09:06 Dose: 0.5 mcg Calcium Carbonate/Glycine (Tums) 1,000 mg CHEWED TIDCC [facility] Last Admin: 02/05/17 08:47 Dose: 1,000 mg [facility] Last Admin: 02/05/17 09:02 Dose: 12.5 mg Clonidine HCl (Catapres) 0.1 mg PO Q4HP PRN PRN Reason: Hypertension Last Admin: 02/04/17 23:02 Dose: 0.1 mg Docusate Sodium (Colace) 100 mg PO DAILY [facility] Last Admin: 02/05/17 08:42 Dose: Not Given Ergocalciferol (Drisdol) 50,000 unit PO Q30D [facility] Furosemide (Lasix) 80 mg PO DAILY [facility] Last Admin: 02/05/17 09:06 Dose: 80 mg Heparin Sodium (Porcine) (Heparin) 5,000 unit SQ Q12 [facility] Last Admin: 02/05/17 09:02 Dose: 5,000 unit Hydromorphone HCl (Dilaudid) 0.5 mg IV Q2HP PRN PRN Reason: Pain Last Admin: 02/05/17 09:22 Dose: 0.5 mg Hydroxychloroquine Sulfate (Plaquenil) 200 mg PO BID [facility] Last Admin: 02/05/17 09:06 Dose: 200 mg Azithromycin 250 mg/ Dextrose 250 mls @ 250 mls/hr IV Q24H [facility] Stop: 02/06/17 10:59 Last Admin: 02/05/17 10:00 Dose: 250 mls/hr Ceftriaxone Sodium 1 gm/ (Dextrose) 50 mls @ 100 mls/hr IV Q24H [facility] Last Infusion: 02/05/17 09:45 Dose: Infused Lisinopril (Zestril) 10 mg PO DAILY [facility] Last Admin: 02/05/17 09:02 Dose: 10 mg Multivit/Ca Carb/B Cmplx/FA/Prenat (Diatx) 1 tab PO DAILY [facility] Last Admin: 02/05/17 09:07 Dose: 1 tab Naloxone HCl (Narcan) 0.1 mg IV Q2MIN PRN PRN Reason: Opiate Reversal Ondansetron HCl (Zofran) 4 mg IV Q4-6HP PRN PRN Reason: Nausea And Vomiting Last Admin: 02/03/17 19:47 Dose: 4 mg Pantoprazole Sodium (Protonix) 40 mg IV QAMAC [facility] Last Admin: 02/05/17 08:47 Dose: 40 mg Carboxymethylcellulo se Sodium [Lubricant Eye Gtt] 1 dose OU QIDP PRN PRN Reason: DRY EYES [Lubricant Eye (Ointment]) 1 dose OU HSP PRN PRN Reason: DRY EYES Promethazine HCl (Phenergan) 12.5 mg IV Q4-6HP PRN PRN Reason: Nausea And Vomiting Last Admin: 02/03/17 21:49 Dose: 12.5 mg Sevelamer Carbonate (Renvela) 1,600 mg PO TIDCC [facility] Last Admin: 02/05/17 08:47 Dose: 1,600 mg Sodium Chloride (Saline Flush) 10 ml IV Q8 [facility] Last Admin: 02/05/17 05:43 Dose: 10 ml Medical - PN: A/P - Time Spent With Patient Total time spent is greater than 50% in coordination of care (as documented) at patient's floor/unit and/or counseling patient: - Narrative A/P Narrative: ESRD: On PD, nephrology consulted, Hypertensive emergency: Off nicardipine drop, on amlodipine and coreg, continue same bp much better this AM, off lisinopril due to hyperkalemia. Anemia: dropping hb, workup pending, followed by nephrology. 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 patient notes she has not taken prednisone for over 30 days, continue hydroxychlorozine , rheumatology consulted , chr low c3 and c4 noted, Acute pulmonary edema: Noted on X ray IV lasix, PD initiated by Nephrology, off oxygen , repeat CXR today. Hyperkalemia: , resolved Pneumonia: reported on CXR, continue zithromax and rocephin. DVT hep sq Diet Renal diet. Full Code. Medical - PN: Qual - VTE Deep Vein Thrombosis/Pulmonary Embolism Present on Admission: No
--- NOTE | 2017-02-05 12:04 | XRay Report ---
CLINICAL INFORMATION: Pneumonia follow-up COMPARISON: 02/04/2017 0811 hours FINDINGS: There is mild enlargement of the cardiac silhouette - as previously seen. Mediastinum and pulmonary vessels are normal. Bibasilar infiltrates have almost cleared with minimal vague residual. No effusion. Bones and soft tissues are normal. IMPRESSION: Near complete clearance of bibasilar infiltrates with minimal residual. Mild enlargement of the cardiac silhouette - stable Interpreted and Authenticated by: Khris Ramey 02/05/17
--- NOTE | 2017-02-05 17:07 | Nephrology Progress Note ---
Subjective Patient information: Note initiated : 02/05/17 at 5:04 pm Service Date, if different from initiated Date: [] Patient: Tigist Villagomez 21 y/o F admitted on 02/03/17 for Hyperkalemia, Hypermagnesemia, Hypoxia. Chief Complaint: [] Principal diagnosis: fluid overload Interval history: Patient feels much better off oxygen, denies SOB, CP No edema No issues with PD concern of bicytopenia with declinign WBC coutn and Hb Pertinent ROS: as above Objective - Vital Signs Vital signs: Vital Signs Temp Pulse Resp BP BP Pulse Ox 02/05/17 16:00 98.1 F 17 126/96 91 02/05/17 15:00 16 128/101 95 02/05/17 14:00 16 134/97 95 02/05/17 13:00 16 137/111 93 02/05/17 12:00 97.9 F 13 143/106 99 02/05/17 11:00 17 154/116 97 02/05/17 10:00 17 154/116 96 02/05/17 09:30 134/97 02/05/17 09:00 13 148/112 95 02/05/17 08:00 98.0 F 93 H 16 141/113 95 02/05/17 07:00 12 132/94 97 02/05/17 06:00 16 137/104 92 02/05/17 05:00 88 16 140/109 92 02/05/17 03:56 98.0 F 92 H 16 136/105 92 02/05/17 03:00 88 14 122/95 93 02/05/17 02:00 80 16 139/107 92 02/05/17 01:00 80 16 132/109 02/05/17 00:00 98.7 F 89 15 135/103 95 02/04/17 23:00 96 H 16 151/119 96 02/04/17 22:00 105 H 18 161/128 100 02/04/17 21:00 96 H 18 143/108 94 02/04/17 20:00 99.2 F H 98 H 24 H 146/114 93 02/04/17 19:33 99 02/04/17 19:00 104 H 20 154/110 97 02/04/17 18:05 24 H 164/119 02/04/17 17:53 20 Intake and Output 02/05/17 02/05/17 02/05/17 05:59 13:59 21:59 Intake Total 1020 / 1020 50 / 50 100 / 100 Balance 1020 / 1020 50 / 50 100 / 100 Intake: IV 300 / 300 50 / 50 Zithromax 250 mg In 250 / 250 Dextrose 5% in Water 250 ml @ 250 mls/hr IV Q24H RAÚL Rx#:[id number] Rocephin 1 gm In Dextrose 50 / 50 50 / 50 5% in Water 50 ml @ 100 mls/hr IV Q24H RAÚL Rx#: [id number] Oral 720 / 720 100 / 100 Other: # Voids 1 # Bowel Movements 1 Intake & Output: Intake & Output 02/05/17 02/05/17 02/05/17 05:59 13:59 21:59 Intake Total 1020 / 1020 50 / 50 100 / 100 Balance 1020 / 1020 50 / 50 100 / 100 Intake: IV 300 / 300 50 / 50 Zithromax 250 mg In 250 / 250 Dextrose 5% in Water 250 ml @ 250 mls/hr IV Q24H RAÚL Rx#:[id number] Rocephin 1 gm In Dextrose 50 / 50 50 / 50 5% in Water 50 ml @ 100 mls/hr IV Q24H RAÚL Rx#: [id number] Oral 720 / 720 100 / 100 Other: # Voids 1 # Bowel Movements 1 - General Appearance General appearance: appears started age, chronically ill EENT: mucous membranes moist Neck: no JVD Respiratory: clear Cardiology: mid-systolic murmur, no edema, normal S1, normal S2 Gastrointestinal: no tenderness, no guarding Integumentary: no rash, warm and dry Neurologic: alert and oriented x3 Musculoskeletal: no erythema, no cyanosis Psychiatric: mood/affect appropriate - Lab 02/05/17 03:48 02/05/17 03:48 Most recent lab results Calcium 9.0 mg/dl (8.6-10.4) 02/05/17 03:48 Phosphorus 5.6 mg/dL (2.7-4.5) H 02/05/17 03:48 Magnesium 2.6 mg/dL (1.6-2.5) H 02/05/17 03:48 Assessment and Plan (1) ESRD (end stage renal disease) on dialysis Patient on peritoneal dialysis with issues with non compliance states misses PD on and off because of work issues or at times have to cut short on treatment fluid status much improved, no hyperkalemia Patient also has anemia with mild leucopenia: tsat at goal, B12 low normal will need aranesp but will first follow rheumatology consult as she has leucopenia as well and low complements plan: PD today again, will use on 4 cycles of 2.5% on cycler with fill volume of 2L, dwell time of 1hr 52 min and total time of 9 hrs will continue with lisinopril, coreg and amlodipine, bp control much improved monitor I/O, daily weights dose meds per PD Will follow along Appreciate hospitalist help in managing this patient Status: Acute
[2017-02-05] MEDS: ACETAMINOPHEN 325 MG TABLET PO PRN (17:52)
[2017-02-05] MEDS ORDERED: ACETAMINOPHEN 325 MG TABLET PO PRN (19:52)
[2017-02-05] MEDS ORDERED: PROMETHAZINE 25 MG/ML VIAL IV PRN (19:52)
[2017-02-05] MEDS ORDERED: LUBRICANT EYE OU PRN (19:52)
[2017-02-05] MEDS ORDERED: cloNIDine HCL 0.1 MG TABLET PO PRN (19:52)
[2017-02-05] MEDS ORDERED: NALOXONE HCL 0.4 MG/ML VIAL IV PRN (19:52)
[2017-02-05] MEDS ORDERED: CARBOXYMETHYLCELLULOSE OU PRN (19:52)
[2017-02-05] MEDS ORDERED: ONDANSETRON 4 MG/2 ML VIAL IV PRN (19:52)
[2017-02-05] MEDS ORDERED: HYDROmorphone 2 MG/ML SYRINGE IV PRN (19:52)
[2017-02-06] MEDS: 0.9 % SODIUM CHLORIDE 10 ML SYRINGE IV SCH ×2 (05:21→13:59)
[2017-02-06 06:08] LABS: Basophils # (Auto) 0 K/mcL (0.0-0.3); Basophils % (Auto) 0.5 % (0.0-2.0); Eosinophils # (Auto) 0 K/mcL (0.0-0.7); Eosinophils % (Auto) 0 % (0.0-7.0); Granulocytes % (Auto) 59.6 % (38.0-78.0); Lymphocytes # (Auto) 1.1 K/mcL (1.5-4.8); Lymphocytes % (Auto) 26.8 % (15.5-49.0); Mean Cell Volume 91.9 fL (80.0-100.0); Mean Corpuscular HGB Conc 33.4 g/dL (31.0-36.0); Mean Corpuscular Hemoglobin 30.7 pg (26.0-34.0); Monocytes # (Auto) 0.6 K/mcL (0.1-0.9); Monocytes % (Auto) 13.1 % (1.0-12.0); Platelet Count 201 K/mcL (140-440); RBC 2.55 M/mcL (4.00-5.20); Red Cell Distribution Width 16.4 % (11.5-14.5)
[2017-02-06 06:34] LABS: ALT/SGPT 27 U/l (0-40); Albumin/Globulin Ratio 1.4 (1.0-2.3); Alkaline Phosphatase 60 U/L (39-117); Bilirubin,Direct 0.2 mg/dL (0.0-0.3); Blood Urea Nitrogen 66 mg/dl (6-20); Gamma Glutamyl Transpeptidase 15 U/L (5-36); Magnesium 2.7 mg/dL (1.6-2.5); Uric Acid 4.9 mg/dL (2.5-8.0)
[2017-02-06] MEDS ORDERED: PANTOPRAZOLE 40 MG VIAL IV SCH (07:30)
--- NOTE | 2017-02-06 07:44 | Internal Medicine Consult Note ---
Medical - CN: HPI - Data of Consult Patient: known to practice within the last 3 years (Established patient with [facility]) Consult date: 02/05/17 Requesting Physician: Mazin Mayer Primary Care Provider: James Jeter - Consult Narrative Reason for consult: Lupus management History of present illness: Ms. Villagomez is a 21 year old female with known history of SLE and lupus nephritis complicated with ESRD on PD who was admitted in hospital with fluid overload as her dialysis machine broke down and she missed her dialysis. She has missed her dialysis before and had been admitted in outside facility few months ago with similar issues. She presented with worsening swelling and pain in her legs, shortness of breath, generalized aches and back pain. CXR was concerning for fluid overload. There was a concern for pericardial effusion as well. She responded well to inpatient dialysis and CXR improved significantly. I was requested by Hospitalist services to look into her cell counts with a concern for lupus flare. She has chronic anemia from CKD and has been Aranesp although reports that she has recently missed those injections as well. Her Hgb was relatively the same but white cell count dropped. Platelets were relatively stable. She was last seen in [facility] on 12/10/16 and was advised to initiate hydroxychloroquine and taper her prednisone from 20 mg daily dose. She misunderstood instructions and tapered off prednisone completely few weeks ago. She was advised to slowly taper prednisone and remain on 10 mg daily dose until her next visit. She says that she is pretty happy that she stopped her prednisone completely . She does not report any significant symptoms related to lupus activity being off prednisone. She had one episode of painless oral ulcer which got resolved in a week. She suffers from chronic papular rash on face and neck which i do not think is related to lupus. This seems more acneiform rash. She does not repot any significant history of recent malar rash , pleuritic chest pain, fevers, inflammatory joint pain or morning stiffness. She continues to take hydroxychloroquine 200 mg bid. Her recent C 3 and C4 are relatively stable and dsdna is pending. Hemolysis labs are negative. CC: Mazni Mayer ROS unobtainable: due to endotracheal tube All systems: reviewed and no additional remarkable complaints except as stated - Constitutional Constitutional: Present: anorexia, headache(s), lethargy, malaise - EENT Eyes: Present: dry eye. Absent: change in vision, loss of vision Nose, mouth and throat: Present: mouth lesions, sore throat. Absent: sinus pain - Cardiovascular Cardiovascular: Present: dyspnea, dyspnea on exertion, leg edema - Respiratory Respiratory: Present: cough, dyspnea, dyspnea on exertion - Gastrointestinal Gastrointestinal: Present: heartburn. Absent: hematochezia, melena - Genitourinary Genitourinary: Absent: flank pain - Musculoskeletal Musculoskeletal: Present: back pain, myalgias. Absent: arthralgias, joint swelling, stiffness - Integumentary Integumentary: Present: acne. Absent: photosensitivity, rash - Neurological Neurological: Absent: focal weakness, loss of vision, memory loss - Psychiatric Psychiatric: Present: depression. Absent: confusion, mood swings - Endocrine Endocrine: Present: change in body appearance. Absent: cold intolerance, heat intolerance - Hematologic/Lymphatic Hematologic/Lymphatic: Absent: easy bleeding, easy bruising, lymphadenopathy - Allergic/Immunologic Allergic/Immunologic: Absent: tongue swelling, uticaria Medical - CN: Meds Home Medications Medication Instructions Recorded Confirmed Type calcitriol 0.25 mcg capsule 0.5 mcg PO DAILY 08/18/16 02/03/17 History lisinopril 10 mg tablet 10 mg PO DAILY 08/18/16 02/03/17 History vitamin B complex-vitamin C-folic 1 tab-cap PO QDAY 08/18/16 02/03/17 History acid 0.8 mg tablet Sevelamer [Renvela] 1,600 mg PO TIDCC 11/15/16 02/03/17 History cholecalciferol (vitamin D3) 50,000 unit PO QWEEK #12 cap 12/10/16 02/03/17 Rx 50,000 unit capsule hydroxychloroquine 200 mg tablet 200 mg PO BID #60 tab 12/10/16 02/03/17 Rx Calcium Carbonate [Tums] 1,000 mg CHEWED TIDCC 02/03/17 02/03/17 History Carboxymethylcellulose Sodium 15 ml OP 3-4XD PRN 02/03/17 02/03/17 History [Lubricant Eye] Docusate Sodium 100 mg PO DAILY 02/03/17 02/03/17 History Furosemide [Lasix] 80 mg PO DAILY 02/03/17 02/03/17 History Mineral Oil/Petrolatum,White 3.5 gm OP HSP PRN 02/03/17 02/03/17 History [Lubricant Eye Ointment] amLODIPine [Norvasc] 5 mg PO DAILY 02/03/17 02/03/17 History Allergies Allergy/AdvReac Type Severity Reaction Status Date / Time No Known Drug Allergies Allergy Verified 12/10/16 13:21 Medical - CN: Exam - Constitutional Vitals: Temp Pulse Resp BP Pulse Ox 98.2 F 86 16 141/109 95 02/06/17 04:00 02/06/17 04:00 02/06/17 04:00 02/06/17 04:00 02/06/17 04:00 General appearance: average body habitus, cooperative, no acute distress - Head Head exam: Present: normal inspection, normocephalic - Eye Eye exam: Present: normal appearance, periorbital swelling. Absent: periorbital tenderness - ENT ENT exam: Present: mucous membranes moist, normal oropharynx - Respiratory Respiratory exam: Present: rales. Absent: chest wall tenderness, wheezes - Cardiovascular Cardiovascular exam: Present: normal rate and rhythm, +S1, +S2 - GI/Abdominal GI/Abdominal exam: Present: soft. Absent: rebound, tenderness - Extremities Exam Extremities exam: Present: full ROM, pedal edema. Absent: joint swelling, tenderness - Neurological Exam Neurological exam: Present: alert, oriented X3. Absent: motor sensory deficit - Psychiatric Psychiatric exam: Present: normal affect, normal mood. Absent: agitated - Skin Skin exam: Present: rash. Absent: cyanosis, petechiae Medical - CN: Result - Labs CBC & Chem 7: 02/06/17 03:45 02/06/17 03:45 Labs: Short CBC 02/06/17 Range/Units 03:45 WBC 4.2 L (4.5-11.0) K/mcL Hgb 7.8 L (12.0-15.0) g/dL Hct 23.5 L (36.0-48.0) % Plt Count 201 (140-440) K/mcL BMP 02/06/17 03:45 Sodium 135 Potassium 4.3 Chloride 91 L Carbon Dioxide 25 BUN 66 H Creatinine 15.8 H* Glucose 110 H Calcium 9.3 Liver Function 02/06/17 Range/Units 03:45 Total Bilirubin 0.4 (0.0-1.0) mg/dL Direct Bilirubin 0.2 (0.0-0.3) mg/dL GGT 15 (5-36) U/L AST 28 (0-37) U/l ALT 27 (0-40) U/l Alkaline Phosphatase 60 (39-117) U/L Albumin 3.0 L (3.2-5.2) gm/dL Medical - CN: A/P (1) Leukopenia Status: Acute (2) Polyarthralgia Status: Chronic (3) Anemia Status: Chronic (4) SLE (systemic lupus erythematosus) Status: Chronic - Narrative A/P Narrative: 21 year old female with history of SLE and lupus nephritis complicated with ESRD on PD who was admitted in hospital with fluid overload as she was unable to continue her dialysis. She presented with swelling and pain in her legs, diffuse body aches and shortness of breath. She is feeling better after initiation of PD. Her wbc count has dropped as compared to her baseline. Hgb and platelet count is relatively stable. C3 and C4 are chronically low. Dsdna is pending. Hemolysis labs are negative. ESR is elevated. She does not report any significant sign or symptoms suggestive of lupus flare. She was supposed to slowly taper her prednisone and stay on prednisone 10 mg daily until her next visit with me but she has tapered it off completely and does not want to reinitiate her prednisone. Differentials for drop in cell counts may include metabolic/toxic or less likely lupus flare. Recommedations; Daily CBC while she is hospitalized; consider obtaining BMB if they drop significantly otherwise continue to monitor Awaiting dsDNA; will follow Continue Hydroxychlorquine 200 mg bid Consider obtaining echocardiogram for suspected pericardial effusion She has follow up appointment scheduled with me in 02/2017. Thank you for allowing me to participate in care of Tigist Villagomez. Call me for questions. Jamel Roy M.D.
[2017-02-06] MEDS ORDERED: CARVEDILOL 12.5 MG TABLET PO SCH (08:00)
[2017-02-06] MEDS: SEVELAMER 800 MG TABLET PO SCH ×2 (08:34→13:58)
[2017-02-06] MEDS: HYDROXYCHLOROQUINE 200 MG TABLET PO SCH (08:34)
[2017-02-06] MEDS: CALCIUM CARBONATE 500 MG TAB.CHEW CHEWED SCH ×2 (08:34→13:58)
[2017-02-06] MEDS: HEPARIN 5,000 UNIT/ML VIAL SQ SCH (08:35)
[2017-02-06] MEDS: FOLIC ACID/VITAMIN B COMP W-C 1 TAB TABLET PO SCH (08:35)
[2017-02-06] MEDS ORDERED: FOLIC ACID/VITAMIN B COMP W-C 1 TAB TABLET PO SCH (09:00)
[2017-02-06] MEDS ORDERED: LISINOPRIL 10 MG TABLET PO SCH (09:00)
[2017-02-06] MEDS ORDERED: cefTRIAXone 1 GM in DEXTROSE 5% IN WATER 50 ML IV SCH (09:00)
[2017-02-06] MEDS ORDERED: CALCITRIOL 0.25 MCG CAPSULE PO SCH (09:00)
[2017-02-06] MEDS ORDERED: amLODIPine 10 MG TABLET PO SCH ×2 (09:00→21:00)
[2017-02-06] MEDS ORDERED: DOCUSATE SODIUM 100 MG CAPSULE PO SCH (09:00)
[2017-02-06] MEDS ORDERED: FUROSEMIDE 40 MG TABLET PO SCH (09:00)
--- NOTE | 2017-02-06 09:52 | Nephrology Progress Note ---
Subjective Patient information: Note initiated : 02/06/17 at 9:48 am Service Date, if different from initiated Date: [] Patient: Tigist Villagomez 21 y/o F admitted on 02/03/17 for Hyperkalemia, Hypermagnesemia, Hypoxia. Chief Complaint: [] Principal diagnosis: fluid overload Interval history: Patient seen this am She is feeling better Denies SOB, CP, dizziness No edema BP control still a challenge, if improves will be discharged today Pertinent ROS: as above Objective - Vital Signs Vital signs: Vital Signs Temp Pulse Resp BP Pulse Ox 02/06/17 07:56 97.7 F 16 157/123 100 02/06/17 04:00 98.2 F 86 16 141/109 95 02/06/17 00:00 98.6 F 84 14 141/103 02/05/17 20:00 98.0 F 81 14 129/104 98 02/05/17 19:00 88 16 136/94 94 02/05/17 18:00 16 132/101 95 02/05/17 17:00 98.0 F 16 142/106 93 02/05/17 16:00 98.1 F 17 126/96 91 02/05/17 15:00 16 128/101 95 02/05/17 14:00 16 134/97 95 02/05/17 13:00 16 137/111 93 02/05/17 12:00 97.9 F 13 143/106 99 02/05/17 11:00 17 154/116 97 02/05/17 10:00 17 154/116 96 Intake and Output 02/05/17 02/06/17 02/06/17 21:59 05:59 13:59 Intake Total 100 / 100 1170 / 1170 Balance 100 / 100 1170 / 1170 Intake: IV 250 / 250 Zithromax 250 mg In 250 / 250 Dextrose 5% in Water 250 ml @ 250 mls/hr IV Q24H [facility] Rx#:[id number] Oral 100 / 100 920 / 920 Other: Net Peritoneal UF 993 Weight 112 lb Intake & Output: Intake & Output 02/05/17 02/06/17 02/06/17 21:59 05:59 13:59 Intake Total 100 / 100 1170 / 1170 Balance 100 / 100 1170 / 1170 Weight 112 lb Intake: IV 250 / 250 Zithromax 250 mg In 250 / 250 Dextrose 5% in Water 250 ml @ 250 mls/hr IV Q24H [facility] Rx#:[id number] Oral 100 / 100 920 / 920 Other: Net Peritoneal UF 993 - General Appearance General appearance: appears started age, chronically ill EENT: mucous membranes moist Neck: no JVD Respiratory: clear Cardiology: no rub, no edema, normal S1, normal S2 Gastrointestinal: no tenderness, no guarding Integumentary: no rash, warm and dry Neurologic: no focal deficit, alert and oriented x3 Musculoskeletal: no erythema, no cyanosis Psychiatric: mood/affect appropriate - Lab 02/06/17 03:45 02/06/17 03:45 Most recent lab results Calcium 9.3 mg/dl (8.6-10.4) 02/06/17 03:45 Phosphorus 5.1 mg/dL (2.7-4.5) H 02/06/17 03:45 Magnesium 2.7 mg/dL (1.6-2.5) H 02/06/17 03:45 Assessment and Plan (1) ESRD (end stage renal disease) on dialysis possible discharge advised to ensure she resumes PD at home, please call you unit if any concerns advised to use 2.5% dianeal for the next few days HTN: uncontrolled even in the past, has come down some during the hospital stay started on coreg, please discharge on 12.5mg bid continue home medications, no further hyperkalemia so will continue lisinopril ensure low sodium diet ensure follow up with PCP and canal boat captain so that they can optimize medications Anemia, leucopenia: patient refuses to restart prednisone white count little better today if BP come down will give aranesp prior to discharge further follow up per primary canal boat captain Thank you for giving me an opportunity to participate in ms Villagomez';s medical care, appreciate it Please forward all hospital records to [facility] dialysis unit in [place] or to Dr Toni Luna in [place] Status: Acute
[2017-02-06] MEDS ORDERED: AZITHROMYCIN 250 MG in DEXTROSE 5% IN WATER 250 ML IV SCH (10:00)
--- NOTE | 2017-02-06 10:22 | Discharge Summary ---
Medical - DS: Prov Patient information: Note initiated : 02/06/17 at 10:15 am Service Date, if different from initiated Date: [] Patient: Tigist Villagomez 21 y/o F admitted on 02/03/17 for Hyperkalemia, Hypermagnesemia, Hypoxia. Chief Complaint: [] Date of admission: 02/03/17 11:29 Discharge date: 02/06/17 Primary care physician: James Jeter Admitting clinician: Mazin Mayer Consults: 02/05/17 11:20 Consult to Physician [CONS] Routine Comment: Consulting Provider: Jamel Roy Reason For Exam: Physician to Consult Discharging clinician: Mazin Mayer Medical - DS: Meds - Discharge Medications Prescriptions: amLODIPine [Norvasc] 10 mg PO BID #60 tablet Carvedilol [Coreg] 12.5 mg PO BIDCC #60 tablet Levofloxacin [Levaquin] 500 mg PO Q48 #2 tablet Levofloxacin [Levaquin] 750 mg PO ONCE #1 tablet Active and Home Medications: Home Medications calcitriol 0.25 mcg capsule 0.5 mcg PO DAILY 08/18/16 [History Confirmed Last Taken Unknown] lisinopril 10 mg tablet 10 mg PO DAILY 08/18/16 [History Confirmed 02/03/17 Last Taken Unknown] vitamin B complex-vitamin C-folic acid 0.8 mg tablet 1 tab-cap PO QDAY 08/18/16 [History Confirmed 02/03/17 Last Taken Unknown] Sevelamer [Renvela] 1,600 mg PO TIDCC 11/15/16 [History Confirmed 02/03/17 Last Taken Unknown] cholecalciferol (vitamin D3) 50,000 unit capsule 50,000 unit PO QWEEK #12 cap [Rx Confirmed 02/03/17 Last Taken Unknown] hydroxychloroquine 200 mg tablet 200 mg PO BID #60 tab 12/10/16 [Rx Confirmed Last Taken Unknown] Calcium Carbonate [Tums] 1,000 mg CHEWED TIDCC 02/03/17 [History Confirmed 02/03 Last Taken Unknown] Carboxymethylcellulose Sodium [Lubricant Eye] 15 ml OP 3-4XD PRN 02/03/17 [ History Confirmed 02/03/17 Last Taken Unknown] Docusate Sodium 100 mg PO DAILY 02/03/17 [History Confirmed 02/03/17 Last Taken Unknown] Furosemide [Lasix] 80 mg PO DAILY 02/03/17 [History Confirmed 02/03/17 Last Taken Unknown] Mineral Oil/Petrolatum,White [Lubricant Eye Ointment] 3.5 gm OP HSP PRN [History Confirmed 02/03/17 Last Taken Unknown] amLODIPine [Norvasc] 5 mg PO DAILY 02/03/17 [History Confirmed 02/03/17 Last Taken Unknown] Medical - DS: Hosp Hospital course: Mr. Villagomez is a 21 year old female who presented to the ER with shortness of breath and cough, She had missed her PD sessions over the weekend due to broken device. She has had her device replaced. She was admitted to the hospital for acute pulmonary edema secondary to fluid overload, Pneumonia and uncontrolled hypertension. Acute pulmonary edema/ Fluid overload: The patient resume PD sessions while inpatient with good response. The patient fluid was gradually removed and her X ray findings as well as her oxygen requirement improved. On discharge she is off oxygen. Nephrology consulted who managed her renal failure/ fluid overload issues. PNA: X ray was read as possible pna, she also had elevated pro calcitonin and cough. Treated with antibiotics, Will be discharged on levofloxacin to complete the course. Dose renally adjusted. Uncontrolled HTN: The patient had severely elevated diastolic BP, she was placed initially on nicardipine drip, which improved her bp, her home meds were resumed but they seemed inadequate to control her bp, she was started on coreg 12.5mg bid, which helped improve her bp, further titration of the bp can be done as outpatient. Cardiomegaly: noted on X ray, patient has no chest complaints, patient will get a echo as outpatient, will be followed by rheumatology / jailer. SLE: patient was supposed to be on hydroxychloroquine and prednisone for management of her lupus, she had low wbc and rbc, during the stay, low complements. Neg hemolysis workup. Pt infrastructure analyst evaluated the patient and advised to continue present management. he will follow up with her in the clinic. On the day of discarge the WBC count has improved to 4.2, hb 7.8 The rest of the stay in the hospital was uneventful. She has been started on coreg for her bp. She will continue to take lisinopril 10mg qd as well as amlodipine 10mg bid at home. Discharge diagnosis: Fluid overload, Pneumonia - Time Spent with Patient Total time spent providing and/or coordinating discharge services: Greater than 30 minutes Medical - DS: Exam - Constitutional Vitals: Vital Signs Temp Pulse Resp BP Pulse Ox 02/06/17 07:56 97.7 F 16 157/123 100 02/06/17 04:00 98.2 F 86 16 141/109 95 02/06/17 00:00 98.6 F 84 14 141/103 02/05/17 20:00 98.0 F 81 14 129/104 98 02/05/17 19:00 88 16 136/94 94 02/05/17 18:00 16 132/101 95 02/05/17 17:00 98.0 F 16 142/106 93 02/05/17 16:00 98.1 F 17 126/96 91 02/05/17 15:00 16 128/101 95 02/05/17 14:00 16 134/97 95 02/05/17 13:00 16 137/111 93 02/05/17 12:00 97.9 F 13 143/106 99 02/05/17 11:00 17 154/116 97 Intake and Output 02/05/17 02/06/17 02/06/17 21:59 05:59 13:59 Intake Total 100 / 100 1170 / 1170 50 / 50 Balance 100 / 100 1170 / 1170 50 / 50 Intake: IV 250 / 250 50 / 50 Zithromax 250 mg In 250 / 250 Dextrose 5% in Water 250 ml @ 250 mls/hr IV Q24H [facility] Rx#:[id number] Rocephin 1 gm In Dextrose 50 / 50 5% in Water 50 ml @ 100 mls/hr IV Q24H [facility] Rx#: [id number] Oral 100 / 100 920 / 920 Other: Net Peritoneal UF 993 Weight 112 lb Additional comments: Constitutional; Afebrile, cooperative, alert, not in distress. Eyes- No icterus, , No periorbital swelling Ears- Ext ear normal, hearing normal to conversation. Neck- Midline trachea, supple Respiratory system: Air Entry equal on both sides, No crackles or wheezing, no rhonchi. CVS- Rate rhythm regular, S1,S2 heard, no gallop, no rub. Abdomen- Soft nontender abdomen, no organomegaly, no tenderness, no guarding or rigidity, POSTER- AOOx3, moving all extremities, no gross focal deficit noted. Medical - DS: Data Labs on day of discharge: Labs from last 24 hours 02/06/17 02/06/17 02/05/17 03:45 03:45 09:55 WBC 4.2 L RBC 2.55 L Hgb 7.8 L Hct 23.5 L MCV 91.9 MCH 30.7 MCHC 33.4 RDW 16.4 H Plt Count 201 MPV 8.7 Gran % 59.6 Lymph % (Auto) 26.8 Graves % (Auto) 13.1 H Eos % (Auto) 0 Baso % (Auto) 0.5 Gran # 2.5 Lymph # 1.1 L Graves # 0.6 Eos # 0 Baso # 0 Smear Path Review Absolute Retic Haptoglobin Sodium 135 Potassium 4.3 Chloride 91 L Carbon Dioxide 25 Anion Gap 19.0 H BUN 66 H Creatinine 15.8 H* GFR Calculation 3 Glucose 110 H Uric Acid 4.9 Calcium 9.3 Phosphorus 5.1 H Magnesium 2.7 H Total Bilirubin 0.4 Direct Bilirubin 0.2 GGT 15 AST 28 ALT 27 Alkaline Phosphatase 60 Lactate Dehydrogenase 258 H Total Protein 5.1 L Albumin 3.0 L Globulin 2.1 L Albumin/Globulin Ratio 1.4 Triglycerides 97 Miscellaneous Test 02/05/17 02/05/17 09:55 09:55 WBC RBC Hgb Hct MCV MCH MCHC RDW Plt Count MPV Gran % Lymph % (Auto) Graves % (Auto) Eos % (Auto) Baso % (Auto) Gran # Lymph # Graves # Eos # Baso # Smear Path Review Absolute Retic 0.4 L Haptoglobin 133 Sodium Potassium Chloride Carbon Dioxide Anion Gap BUN Creatinine GFR Calculation Glucose Uric Acid Calcium Phosphorus Magnesium Total Bilirubin Direct Bilirubin GGT AST ALT Alkaline Phosphatase Lactate Dehydrogenase Total Protein Albumin Globulin Albumin/Globulin Ratio Triglycerides Miscellaneous Test Preliminary micro results at discharge 02/03/17 18:43 Blood Culture - Preliminary Blood 02/03/17 18:37 Blood Culture - Preliminary Blood Medical - DS: A/P - Patient/Caregiver Discharge Instructions Activity: as per physical therapy, increase activity as tolerated Diet: Renal Additional Instructions: Follow up with your PCP in 1-2 weeks follow up with rheumatology as per previous schedule Follow up with your dialysis unit/ neprology for further titration of blood pressure. Go to the ER if fever, shortness of breath, chest pain or any other concerning symptom. We have ordered an echo cardiogram to evaluate enlarged heart, Follow up results with your infrastructure analyst/ Food Service Clerk. - Follow up Plan Follow up with: Toni Luna MD [Physician] - (Continue with your current P.D. schedule with Dr. Luna.) James Jeter MD [Primary Care Provider] - 02/19/17 3:00 pm (If you have any problems before your scheduled appt., you may call to reschedule with another . ) Jamel Roy MD [Physician] - Disposition: Home, Self-Care Prognosis: Fair Rehab Potential: Fair I certify that the patient requires SNF services: No Overall status at discharge: patient is back to baseline Medical - DS: Qual - VTE Deep Vein Thrombosis/Pulmonary Embolism Present on Admission: No
[2017-02-06] MEDS ORDERED: DARBEPOETIN ALFA 100 MCG/ML VIAL IV ONE (11:00)
[2017-02-12] MEDS ORDERED: ERGOCALCIFEROL (VITAMIN D2) 50,000 UNIT CAPSULE PO SCH ×2 (09:00)
== END 2017-02-06 11:50 | disposition home or self-care (01) | DRG 189 ==
LOC: ICU 05:28 → ED 05:28 → ED-MC 05:28 → ICU 11:15
PROVIDERS: ADMIT Internal Medicine; ATTEND Internal Medicine

== ENCOUNTER 2017-03-17 13:02 | Inpatient (IN) ==
--- NOTE | 2017-03-17 13:29 | Emergency Department Note ---
General Adult HPI - General Chief complaint: Weakness Stated complaint: Weakness cough Time Seen by Provider: 03/17/17 13:26 Source: patient Mode of arrival: ambulatory - History of Present Illness HPI Narrative: This patient has continued to feel weakness with cough for the last 7 days or so. I saw her last week and she required a blood transfusion. There was concern about a catheter infection and she has gotten some antibiotics. She did have dialysis this morning. - Related Data Home Medications Medication Instructions Recorded Confirmed calcitriol 0.25 mcg capsule 0.5 mcg PO DAILY 08/18/16 03/17/17 lisinopril 10 mg tablet 10 mg PO DAILY 08/18/16 03/17/17 vitamin B complex-vitamin C-folic 1 tab-cap PO QDAY 08/18/16 03/17/17 acid 0.8 mg tablet Sevelamer [Renvela] 1,600 mg PO TID[facility] 11/15/16 03/17/17 Calcium Carbonate [Tums] 1,000 mg CHEWED TID[facility] 02/03/17 03/17/17 Carboxymethylcellulose Sodium 15 ml OP 3-4XD PRN 02/03/17 03/17/17 [Lubricant Eye] Docusate Sodium 100 mg PO DAILY 02/03/17 03/17/17 Furosemide [Lasix] 80 mg PO DAILY 02/03/17 03/17/17 Mineral Oil/Petrolatum,White 3.5 gm OP HSP PRN 02/03/17 03/17/17 [Lubricant Eye Ointment] Previous Rx's Medication Instructions Recorded cholecalciferol (vitamin D3) 50,000 unit PO QWEEK #12 cap 12/10/16 50,000 unit capsule hydroxychloroquine 200 mg tablet 200 mg PO BID #60 tab 12/10/16 Carvedilol [Coreg] 12.5 mg PO BIDCC #60 tablet 02/06/17 amLODIPine [Norvasc] 10 mg PO BID #60 tablet 02/06/17 Allergies Allergy/AdvReac Type Severity Reaction Status Date / Time No Known Drug Allergies Allergy Verified 03/17/17 13:09 Review of Systems Constitutional: Reports: fever, chills Eyes: Denies: eye pain ENT ED: Denies: ear pain Cardiovascular: Denies: chest pain Respiratory: Reports: cough. 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) SLE (systemic lupus erythematosus) (Chronic) Anemia (Chronic) Hypertension (Chronic) History of MRSA infection (Chronic) Pneumonia (Chronic) Renal insufficiency (Chronic) Past Surgical History (Last Updated 08/15/16 @ 10:05 by Michelle Love) Status post biopsy of kidney (Chronic) Family History Father Cancer Medical history: Reports: arthritis (SLE), hypertension, renal disease, seizures Surgical history ED: Reports: other (Dialysis catheter) Physical Exam - General Limitations: no limitations General appearance: alert, in no apparent distress - Head Head exam: atraumatic, normocephalic - Eye Eye exam: Present: normal appearance - ENT ENT exam: normal exam - Neck Neck exam: Present: normal inspection - Chest Chest inspection: Present: normal inspection - Cardiovascular Cardiovascular exam: Present: regular rate, normal rhythm, normal heart sounds - Abdominal Exam Abdominal exam: Present: soft. Absent: distention, tenderness - Neurological Exam Neurological exam: Present: alert - Psychiatric Psychiatric exam: Present: normal affect, normal mood - Skin Skin exam: Present: warm, dry, intact Course Vital Signs Temperature 100.2 F H 03/17/17 13:03 Pulse Rate 108 H 03/17/17 13:03 Respiratory Rate 20 03/17/17 13:03 Blood Pressure 154/114 03/17/17 13:03 Pulse Oximetry (%) 99 03/17/17 13:03 Temperature 101.8 F H 03/17/17 16:11 Pulse Rate 109 H 03/17/17 16:01 Respiratory Rate 36 H 03/17/17 16:01 Blood Pressure 154/108 03/17/17 16:01 Pulse Oximetry (%) 94 03/17/17 16:01 Medical Decision Making - MDM Narrative Medical decision making narrative: This patient has bilateral infiltrates in her chest x-ray fever but also a history of lupus. She also received cefepime and vancomycin on Thursday. Discussed the case with Dr. Renee who is a little concerned that she is developed a possible pneumonia despite these antibiotics. We did blood cultures and the patient will be admitted to the hospital by Dr. Mayer - Lab Data Lab results reviewed: Yes I reviewed the patient's lab results. Result diagrams: 03/17/17 13:40 03/17/17 13:40 Lab Results 03/17/17 03/17/17 03/17/17 Range/Units 13:40 13:40 13:40 WBC 5.2 (4.5-11.0) K/mcL RBC 2.68 L (4.00-5.20) M/mcL Hgb 8.3 L (12.0-15.0) g/dL Hct 24.8 L (36.0-48.0) % MCV 92.4 (80.0-100.0) fL MCH 31.1 (26.0-34.0) pg MCHC 33.6 (31.0-36.0) g/dL RDW 15.9 H (11.5-14.5) % Plt Count 196 (140-440) K/mcL MPV 8.1 (7.4-10.4) fL Gran % 71.1 (38.0-78.0) % Lymph % (Auto) 10.7 L (15.5-49.0) % Smith % (Auto) 6.8 (1.0-12.0) % Eos % (Auto) 11.4 H (0.0-7.0) % Baso % (Auto) 0 (0.0-2.0) % Gran # 3.7 (1.8-8.0) K/mcL Lymph # (Auto) 0.6 L (1.5-4.8) K/mcL Smith # (Auto) 0.4 (0.1-0.9) K/mcL Eos # (Auto) 0.6 (0.0-0.7) K/mcL Baso # (Auto) 0 (0.0-0.3) K/mcL VBG Lactic Acid 1.1 (0.5-2.2) mmol/L Sodium 136 (133-145) mmol/L Potassium 4.9 (3.3-5.1) mmol/L Chloride 100 (96-108) mmol/L Carbon Dioxide 25 (22-30) mmol/L Anion Gap 11.0 (8-16) BUN 8 (6-20) mg/dl Creatinine 4.7 H (0.6-1.1) mg/dl GFR Calculation 12 Glucose 99 (70-105) mg/dL Calcium 9.4 (8.6-10.4) mg/dl Total Bilirubin 0.5 (0.0-1.0) mg/dL AST 26 (0-37) U/l ALT 13 (0-40) U/l Alkaline Phosphatase 63 (39-117) U/L Total Protein 6.5 (5.9-8.4) gm/dL Albumin 3.9 (3.2-5.2) gm/dL Globulin 2.6 (2.2-3.7) gm/dL Albumin/Globulin Ratio 1.5 (1.0-2.3) - Radiology Data Radiology results reviewed: Yes I reviewed the patient's radiology results. Disposition Clinical Impression: Pneumonia Disposition: Xfer As Inpt ([facility]) Condition: Fair Referrals: James Jeter MD [Primary Care Provider] - Time of Disposition: 16:29
[2017-03-17 14:08] LABS: Basophils # (Auto) 0 K/mcL (0.0-0.3); Basophils % (Auto) 0 % (0.0-2.0); Eosinophils # (Auto) 0.6 K/mcL (0.0-0.7); Eosinophils % (Auto) 11.4 % (0.0-7.0); Granulocytes % (Auto) 71.1 % (38.0-78.0); Lymphocytes # (Auto) 0.6 K/mcL (1.5-4.8); Lymphocytes % (Auto) 10.7 % (15.5-49.0); Mean Cell Volume 92.4 fL (80.0-100.0); Mean Corpuscular HGB Conc 33.6 g/dL (31.0-36.0); Mean Corpuscular Hemoglobin 31.1 pg (26.0-34.0); Monocytes # (Auto) 0.4 K/mcL (0.1-0.9); Monocytes % (Auto) 6.8 % (1.0-12.0); Platelet Count 196 K/mcL (140-440); RBC 2.68 M/mcL (4.00-5.20); Red Cell Distribution Width 15.9 % (11.5-14.5)
[2017-03-17] MEDS ORDERED: LORazepam 1 MG TABLET PO ONE (14:08)
--- NOTE | 2017-03-17 14:29 | XRay Report ---
CLINICAL INFORMATION: History of lupus. Weakness. Cough. TECHNIQUE: Upright PA and lateral chest x-ray COMPARISON: Previous chest x-rays dated 02/05/2017, 02/04/2017, 02/03/2017. FINDINGS: Large caliber left central venous catheter with its tip in the right atrium. There are bilateral pulmonary parenchymal infiltrates. These have a central distribution. Infiltrates are slightly worse than on 02/05/2017 but improved since 02/03/2017. Infiltrates have a predominantly central distribution. There is cardiomegaly. Pericardial effusion is possible in this patient with history of SLE. Infiltrates are nonspecific. Findings may be related to pulmonary edema, pneumonia, or vasculitic infiltrates secondary to lupus. No significant pleural effusion. Costophrenic angles remain sharp. IMPRESSION: 1. Mild cardiomegaly. Pericardial effusion is not excluded in this patient with history of lupus 2. Bilateral parenchymal infiltrates with a central distribution. Findings may be due to pulmonary edema, pneumonia, or lupus vasculitis. 3. Infiltrates are slightly worse on 02/05/2017 but improved since 02/03/2017 Interpreted and Authenticated by: Khris Linares 03/17/17
[2017-03-17 14:30] LABS: ALT/SGPT 13 U/l (0-40); Albumin 3.9 gm/dL (3.2-5.2); Albumin/Globulin Ratio 1.5 (1.0-2.3); Alkaline Phosphatase 63 U/L (39-117); Blood Urea Nitrogen 8 mg/dl (6-20)
[2017-03-17] MEDS ORDERED: ACETAMINOPHEN 325 MG TABLET PO ONE (14:33)
[2017-03-17] MEDS ORDERED: LEVOFLOXACIN 750 MG/150 ML BAG IV ONE (17:20)
[2017-03-17] MEDS ORDERED: VANCOMYCIN PER PHARMACY IV SCH (17:20)
[2017-03-17] MEDS ORDERED: ACETAMINOPHEN 325 MG TABLET PO PRN (17:20)
[2017-03-17] MEDS ORDERED: LISINOPRIL 10 MG TABLET PO SCH (17:20)
[2017-03-17] MEDS ORDERED: NALOXONE HCL 0.4 MG/ML VIAL IV PRN (17:20)
[2017-03-17] MEDS ORDERED: MAGNESIUM HYDROXIDE 30 ML ORAL.SUSP PO PRN (17:20)
[2017-03-17] MEDS ORDERED: IPRATROPIUM/ALBUTEROL 3 ML AMPUL.NEB NEB PRN (17:20)
[2017-03-17] MEDS ORDERED: CARVEDILOL 12.5 MG TABLET PO SCH (17:30)
[2017-03-17] MEDS ORDERED: PETROLATUM WHITE OU PRN (17:45)
[2017-03-17] MEDS ORDERED: MINERAL OIL OU PRN (17:45)
[2017-03-17] MEDS ORDERED: CARBOXYMETHYLCELLULOSE SODIUM OU PRN (17:45)
[2017-03-17] MEDS: CALCIUM CARBONATE 500 MG TAB.CHEW CHEWED SCH (17:54)
[2017-03-17] MEDS: SEVELAMER 800 MG TABLET PO SCH (17:54)
[2017-03-17 17:57] LABS: Complement C3 75.2 mg/dl (90-180)
[2017-03-17] MEDS: FUROSEMIDE 40 MG TABLET PO SCH (17:58)
[2017-03-17] MEDS ORDERED: VANCOMYCIN 750 MG in 0.9 % SODIUM CHLORIDE 250 ML IV ONE (18:00)
--- NOTE | 2017-03-17 18:01 | Internal Med History&Physical ---
Medical - H&P: [facility] Patient information: Note initiated : 03/17/17 at 5:56 pm Service Date, if different from initiated Date: [] Patient: Tigist Villagomez a 21 y/o F admitted on 03/17/17 for Weakness cough. Chief Complaint: [] History of present illness: Ms. Villagomez is a 21 year old F h/o lupus, on HD due to lupus nephritis, preseents to the ER with fever, cough and weakness x 1 day The patient sister who lives with the patient was the primary history provider, apparently in the ER the patient wanted to calm down and was given 2 mg ativan. The patient was very drowsy during my exam. per the sister the patient was doing ok till yesterday, last evening she started to notice that she was not feeling well, complained of shortness of breath and cough, Cough was with yellow sputum, no aggravting relieving factors, no hemoptysis. The patient had been coughing all night and could not sleep. She had sujbective sensations of fever and chills. The patient is arousable by verbal commands but goes back to sleep, who concurred with the story. She denies any sick contacts. in the ER she was febrile, cXR was suggestive of pna, vasculitis, pulm hemorrhage. She had a HD cather site infection last week and was on vancomycin and cefepime till last thursday for same. Denies any new infection. 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 ( MPO) antibodies positive (Chronic) SLE (systemic lupus erythematosus) (Chronic) Anemia (Chronic) Hypertension (Chronic) History of MRSA infection (Chronic) Pneumonia (Chronic) Renal insufficiency (Chronic) Surgical history: Past Surgical History (Last Updated 08/15/16 @ 10:05 by Michelle Love) Status post biopsy of kidney (Chronic) Pertinent family history: Family History Father Cancer Medical - H&P: Meds Home Medications Medication Instructions Recorded Confirmed Type calcitriol 0.25 mcg capsule 0.5 mcg PO DAILY 08/18/16 03/17/17 History lisinopril 10 mg tablet 10 mg PO DAILY 08/18/16 03/17/17 History vitamin B complex-vitamin C-folic 1 tab-cap PO QDAY 08/18/16 03/17/17 History acid 0.8 mg tablet Sevelamer [Renvela] 1,600 mg PO TIDCC 11/15/16 03/17/17 History cholecalciferol (vitamin D3) 50,000 unit PO QWEEK #12 cap 12/10/16 03/17/17 Rx 50,000 unit capsule hydroxychloroquine 200 mg tablet 200 mg PO BID #60 tab 12/10/16 03/17/17 Rx Calcium Carbonate [Tums] 1,000 mg CHEWED TIDCC 02/03/17 03/17/17 History Carboxymethylcellulose Sodium 15 ml OP 3-4XD PRN 02/03/17 03/17/17 History [Lubricant Eye] Docusate Sodium 100 mg PO DAILY 02/03/17 03/17/17 History Furosemide [Lasix] 80 mg PO DAILY 02/03/17 03/17/17 History Mineral Oil/Petrolatum,White 3.5 gm OP HSP PRN 02/03/17 03/17/17 History [Lubricant Eye Ointment] Carvedilol [Coreg] 12.5 mg PO BIDCC #60 tablet 02/06/17 03/17/17 Rx amLODIPine [Norvasc] 10 mg PO BID #60 tablet 02/06/17 03/17/17 Rx Allergies Allergy/AdvReac Type Severity Reaction Status Date / Time No Known Drug Allergies Allergy Verified 03/17/17 13:09 Medical - H&P: Exam - Constitutional Vitals: Temp Pulse Resp BP Pulse Ox 99.2 F H 104 H 18 148/111 98 03/17/17 17:25 03/17/17 17:01 03/17/17 17:25 03/17/17 17:25 03/17/17 17:25 Exam: GENERAL: The patient is a well-developed, well-nourished in no apparent distress. Is drowsy VITAL SIGNS: Reviewed and as noted elsewhere. HEENT: Head is normocephalic and atraumatic. Extraocular muscles are intact. Pupils are equal, round, and reactive to light. Nares appeared normal. Mouth appears any without lesions. Mucous membranes are moist. NECK: Normal to inspection, Supple, No lymphadenopathy or thyromegaly. LUNGS: Air entry equal on both sides, no wheezing, crackles or rhonchi noted. No accessory muscles of respiration HEART: Regular rate and rhythm normal, S1 and S2 heard, no Gallop, S3 or Rub Noted, No Gross murmur heard. ABDOMEN: Soft, nontender, and nondistended. Positive bowel sounds. No hepatosplenomegaly was noted. EXTREMITIES: No cyanosis, clubbing, rash, lesions or edema. NEUROLOGIC: Cranial nerves II through XII are grossly intact. Motor and Sensory System Grossly Intact PSYCHIATRIC: Normal affect, Normal Mood. Appropriate Behavior. SKIN: No ulceration or wounds noted, No jaundice, No rash noted. Medical - H&P: Reslt - Labs CBC & Chem 7: 03/17/17 13:40 03/17/17 13:40 Medical - H&P: A/P - Narrative A/P Narrative: A/P PNA: etiology, recent broad spectrum abx used, treat as hcap, vanco, meropenum and levofloxacin. get blood cultures. Get CT to exclude other etiology. check mycoplasma, and urinary legionella antigen. Lupus: continue hydroxychloroquine, get esr, crp, c3, c4, and ds dna. HTN elevated bp, resume home meds and monitor. ESRD had HD this AM, labs ok, nephrology following. DVT hep sq Diet renal. Medical - H&P: Qual - Stroke Symptom Onset Unknown: No - VTE Deep Vein Thrombosis/Pulmonary Embolism Present on Admission: No Social History - Tobacco smoking status: Never smoker - Alcohol alcohol intake frequency: does not drink - Substance use substance use type: does not use
--- NOTE | 2017-03-17 18:21 | Cat Scan Report ---
CLINICAL INFORMATION: Lupus. Bilateral pulmonary parenchymal infiltrates. COMPARISON: Previous chest x-rays dated 03/17/2017, 02/05/2017, 11/15/2016 TECHNIQUE: Axial noncontrast enhanced images through the chest. Sagittally and coronally reformatted images. MIP reformatted images. FINDINGS: Large caliber right central venous catheter with its tip in the right atrium. Small pericardial effusion. This measures approximately 5 mm in thickness. No significant pleural effusion. There are bilateral pulmonary parenchymal infiltrates. There appears to be central predominance on plain radiograph but infiltrates involve the lateral and basilar lungs as well. Infiltrates are consistent with systemic lupus erythematosus. Infiltrates have a groundglass and nodular appearance. There is bronchial wall thickening. These findings may be due to pneumonia or lupus pneumonitis. No bronchiectasis. No significant pleural fluid. There is nonspecific mediastinal adenopathy with pretracheal and perivascular nodes. The tobin are prominent and hilar adenopathy is suspected. Intravenous contrast material was not administered. There is bilateral axillary adenopathy. Images of the upper abdomen are negative IMPRESSION: 1. Diffuse pulmonary parenchymal infiltrates. Infiltrates have a groundglass and nodular appearance and there is bronchial wall thickening, consistent with pneumonia or lupus pneumonitis. 2. Mediastinal and probable hilar adenopathy 3. Small pericardial effusion Interpreted and Authenticated by: Khris Linares 03/17/17
[2017-03-17 19:13] LABS: Procalcitonin 0.35 ng/mL (<0.10)
[2017-03-17] MEDS: HYDROcodone/APAP 5/325MG TABLET PO PRN ×2 (19:23→23:45)
[2017-03-17] MEDS ORDERED: VANCOMYCIN 500 MG VIAL ONE (19:48)
[2017-03-17] MEDS ORDERED: IMIPENEM/CILASTATIN SODIUM 500 MG VIAL IV ONE (19:48)
[2017-03-17] MEDS: IMIPENEM/CILASTATIN SODIUM 500 MG in 0.9 % SODIUM CHLORIDE 100 ML IV SCH (19:50)
[2017-03-17] MEDS: amLODIPine 10 MG TABLET PO SCH (20:33)
[2017-03-17] MEDS: HYDROXYCHLOROQUINE 200 MG TABLET PO SCH (20:33)
[2017-03-17] MEDS: FAMOTIDINE/PF 20 MG/2 ML VIAL IV SCH (20:33)
[2017-03-17] MEDS: HEPARIN 5,000 UNIT/ML VIAL SQ SCH (20:33)
[2017-03-17] MEDS: guaiFENesin/DEXTROMETHORPHAN ORAL SOL PO PRN ×2 (20:34→23:46)
[2017-03-17] MEDS: ONDANSETRON 4 MG/2 ML VIAL IV PRN (23:00)
[2017-03-18] MEDS ORDERED: LABETALOL 5 MG/ML ML IV ONE ×2 (00:10→00:18)
[2017-03-18] MEDS: HYDROcodone/APAP 5/325MG TABLET PO PRN ×4 (05:23→21:03)
[2017-03-18] MEDS: guaiFENesin/DEXTROMETHORPHAN ORAL SOL PO PRN (05:23)
[2017-03-18 05:59] LABS: Basophils # (Auto) 0 K/mcL (0.0-0.3); Basophils % (Auto) 0.3 % (0.0-2.0); Eosinophils # (Auto) 0.4 K/mcL (0.0-0.7); Eosinophils % (Auto) 5.7 % (0.0-7.0); Granulocytes % (Auto) 72.9 % (38.0-78.0); Lymphocytes # (Auto) 0.8 K/mcL (1.5-4.8); Lymphocytes % (Auto) 12.6 % (15.5-49.0); Mean Corpuscular HGB Conc 33.7 g/dL (31.0-36.0); Mean Corpuscular Hemoglobin 31.3 pg (26.0-34.0); Monocytes # (Auto) 0.5 K/mcL (0.1-0.9); Monocytes % (Auto) 8.5 % (1.0-12.0); Platelet Count 174 K/mcL (140-440); RBC 2.56 M/mcL (4.00-5.20); Red Cell Distribution Width 15.8 % (11.5-14.5)
[2017-03-18 06:46] LABS: ALT/SGPT 12 U/l (0-40); Albumin 3.6 gm/dL (3.2-5.2); Albumin/Globulin Ratio 1.4 (1.0-2.3); Alkaline Phosphatase 53 U/L (39-117); Bilirubin,Direct < 0.2 mg/dL (0.0-0.3); Blood Urea Nitrogen 21 mg/dl (6-20); Gamma Glutamyl Transpeptidase 19 U/L (5-36); Magnesium 2.2 mg/dL (1.6-2.5); Uric Acid 3.1 mg/dL (2.5-8.0)
[2017-03-18] MEDS ORDERED: SODIUM POLYSTYRENE SULFONATE 15 GM/60 ML SUSPENSION PO ONE (07:28)
[2017-03-18] MEDS: CALCIUM CARBONATE 500 MG TAB.CHEW CHEWED SCH ×3 (08:42→17:28)
[2017-03-18] MEDS: SEVELAMER 800 MG TABLET PO SCH ×4 (08:42→20:42)
[2017-03-18] MEDS: CARVEDILOL 12.5 MG TABLET PO SCH ×2 (08:42→17:28)
[2017-03-18] MEDS: FUROSEMIDE 40 MG TABLET PO SCH (08:43)
[2017-03-18] MEDS: DOCUSATE SODIUM 100 MG CAPSULE PO SCH (08:43)
[2017-03-18] MEDS: LOSARTAN 50 MG TABLET PO SCH (08:43)
[2017-03-18] MEDS: FOLIC ACID/VITAMIN B COMP W-C 1 TAB TABLET PO SCH (08:43)
[2017-03-18] MEDS: HEPARIN 5,000 UNIT/ML VIAL SQ SCH ×2 (08:43→21:04)
[2017-03-18] MEDS: amLODIPine 10 MG TABLET PO SCH ×2 (08:44→21:04)
[2017-03-18] MEDS: FAMOTIDINE/PF 20 MG/2 ML VIAL IV SCH ×2 (08:44→21:04)
[2017-03-18] MEDS: HYDROXYCHLOROQUINE 200 MG TABLET PO SCH ×2 (08:44→21:04)
[2017-03-18] MEDS ORDERED: CALCITRIOL 0.25 MCG CAPSULE PO SCH (09:00)
[2017-03-18] MEDS ORDERED: CALCIUM GLUCONATE 4.65 MEQ in DEXTROSE 5% IN WATER 50 ML IV ONE (09:00)
--- NOTE | 2017-03-18 10:33 | Internal Med Progress Note ---
Medical - PN: Subj Patient information: Note initiated : 03/18/17 at 10:32 am Service Date, if different from initiated Date: [] Patient: Tigist Villagomez a 21 y/o F admitted on 03/17/17 for Weakness Cough/ Pneumonia. Chief Complaint: [] Interval history: Ms. Villagomez is a 21 year old F h/o lupus, on HD due to lupus nephritis, preseents to the ER with fever, cough and weakness x 1 day The patient sister who lives with the patient was the primary history provider, apparently in the ER the patient wanted to calm down and was given 2 mg ativan. The patient was very drowsy during my exam. per the sister the patient was doing ok till yesterday, last evening she started to notice that she was not feeling well, complained of shortness of breath and cough, Cough was with yellow sputum, no aggravting relieving factors, no hemoptysis. The patient had been coughing all night and could not sleep. She had sujbective sensations of fever and chills. The patient is arousable by verbal commands but goes back to sleep, who concurred with the story. She denies any sick contacts. in the ER she was febrile, cXR was suggestive of pna, vasculitis, pulm hemorrhage. She had a HD cather site infection last week and was on vancomycin and cefepime till last thursday for same. Denies any new infection. March 18: patient seen examined, no acute overnight events, bp high one time dose of labetalol given with some improvement, pt usually runs high. This AM her K was high, and kenneth gluconate and Kayexlate given, plan for HD today. She notes of her generalized pain due to lupus, and dry cough She verified the story which was given by her sister, notes that since the placement of the new catheter she sometimes feels anxious. Pertinent ROS: Denies headache, dizziness chronic chest pain present, No palpitations Dry cough Prsent, Present shortness of breath Denies abdominal pain, nausea or vomiting. - Constitutional Vitals: Vital Signs Temp Pulse Resp BP Pulse Ox 97.7 F 104 H 20 151/115 98 03/18/17 08:01 03/17/17 17:01 03/18/17 08:01 03/18/17 08:01 03/18/17 08:01 Period Temp Pulse Resp BP Sys/Goldstein Pulse Ox Last 24 Hr 97.7 F-100.2 F 18-20 145-165/108-116 92-100 Intake and Output 03/17/17 03/18/17 03/18/17 21:59 05:59 13:59 Intake Total 150 / 150 250 / 250 100 / 100 Balance 150 / 150 250 / 250 100 / 100 Weight 120 lb 6.4 oz Intake & Output: Intake & Output 03/17/17 03/18/17 03/18/17 21:59 05:59 13:59 Intake Total 150 / 150 250 / 250 100 / 100 Balance 150 / 150 250 / 250 100 / 100 Weight 120 lb 6.4 oz Intake: IV 150 / 150 100 / 100 Primaxin 500 mg In Sodium 100 / 100 Chloride 0.9% 100 ml @ 100 mls/hr IV Q12H [facility] Rx #:[id number] Oral 250 / 250 Exam: Constitutional; Afebrile, cooperative, alert, not in distress. Eyes- No icterus, , No periorbital swelling Ears- Ext ear normal, hearing normal to conversation. Neck- Midline trachea, supple Respiratory system: Air Entry equal on both sides, No crackles or wheezing, no rhonchi. CVS- Rate rhythm regular, S1,S2 heard, no gallop, no rub. Abdomen- Soft nontender abdomen, no organomegaly, no tenderness, no guarding or rigidity, PICTURE FRAMER- AOOx3, moving all extremities, no gross focal deficit noted. Medical - PN: Obj Da - Labs CBC & Chem 7: 03/18/17 04:00 03/18/17 04:00 Labs: Abnormal Lab Results 03/18/17 03/18/17 04:00 04:00 RBC 2.56 L Hgb 8.0 L Hct 23.8 L RDW 15.8 H Lymph % (Auto) 12.6 L Lymph # (Auto) 0.8 L Potassium 6.1 H* BUN 21 H Creatinine 6.3 H* Lactate Dehydrogenase 277 H Meds: Medications Acetaminophen (Tylenol) 650 mg PO Q6HP PRN PRN Reason: PAIN/FEVER > 101 Hydrocodone Bitart/Acetaminophen ([place] 5/325mg) 1 tab PO Q4HP PRN PRN Reason: Pain Last Admin: 03/18/17 10:13 Dose: 1 tab Albuterol/Ipratropium (Duoneb) 3 ml NEB Q4HRT PRN PRN Reason: Shortness Of Breath Or Wheezing Amlodipine Besylate (Norvasc) 10 mg PO BID [facility] Last Admin: 03/18/17 08:44 Dose: 10 mg Calcitriol (Rocaltrol) 0.5 mcg PO DAILY [facility] Last Admin: 03/18/17 08:44 Dose: 0.5 mcg Calcium Carbonate/Glycine (Tums) 1,000 mg CHEWED TIDCC [facility] Last Admin: 03/18/17 08:42 Dose: 1,000 mg [facility] ([facility]g) [facility] Last Admin: 03/18/17 08:42 Dose: 25 mg Docusate Sodium (Colace) 100 mg PO DAILY [facility] Last Admin: 03/18/17 08:43 Dose: Not Given Famotidine (Pepcid) 20 mg IV Q12 [facility] Last Admin: 03/18/17 08:44 Dose: 20 mg Furosemide (Lasix) 80 mg PO DAILY [facility] Last Admin: 03/18/17 08:43 Dose: 80 mg Guaifenesin (Robitussin Dm) 5 ml PO Q4HP PRN PRN Reason: Cough Last Admin: 03/18/17 05:23 Dose: 5 ml Heparin Sodium (Porcine) (Heparin) 5,000 unit SQ Q12 [facility] Last Admin: 03/18/17 08:43 Dose: 5,000 unit Hydroxychloroquine Sulfate (Plaquenil) 200 mg PO BID [facility] Last Admin: 03/18/17 08:44 Dose: 200 mg Imipenem/Cilastatin Sodium 500 (mg/ Sodium Chloride) 100 mls @ 100 mls/hr IV Q12H [facility] Last Infusion: 03/18/17 06:33 Dose: Infused Levofloxacin (Levaquin) 500 mg in 100 mls @ 100 mls/hr IV Q48H [facility] Losartan Potassium (Cozaar) 50 mg PO DAILY [facility] Last Admin: 03/18/17 08:43 Dose: 50 mg Magnesium Hydroxide (Milk Of Magnesia) 30 ml PO DAILYP PRN PRN Reason: Constipation Multivit/Ca Carb/B Cmplx/FA/Prenat (Diatx) 1 tab PO DAILY [facility] Last Admin: 03/18/17 08:43 Dose: 1 tab Naloxone HCl (Narcan) 0.1 mg IV Q2MIN PRN PRN Reason: Opiate Reversal Non-Formulary Medication (Cholecalciferol (Vitamin D3) [Vitamin D3]) 50,000 unit PO QWEEK [facility] Ondansetron HCl (Zofran) 4 mg IV Q4HP PRN PRN Reason: Nausea And Vomiting Last Admin: 03/17/17 23:00 Dose: 4 mg Carboxymethylcellulo se Sodium [Lubricant Eye] 1 dose OU QIDP PRN PRN Reason: DRY EYES Mineral Oil/Petrolatum,White [ Lubricant Eye Ointment] 1 dose OU HSP PRN PRN Reason: DRY EYES Sevelamer Carbonate (Renvela) 1,600 mg PO TIDCC [facility] Last Admin: 03/18/17 08:42 Dose: 1,600 mg Vancomycin HCl (Vancomycin Per Pharmacy) 1 order IV [place] Medical - PN: A/P - Time Spent With Patient Total time spent is greater than 50% in coordination of care (as documented) at patient's floor/unit and/or counseling patient: - Narrative A/P Narrative: A/P PNA: Likely mycoplasma PNA, urine IgM antibody present, will contiue broad spectrum ABX x 48 hrs and if nothing grows in cultures will d/c vanco and imipenum. Consider switching levo to zithro f or myco if rest of culture are negative. Lupus: continue hydroxychloroquine, esr high, but c3 is higher than last visit, c4 is nromal, I do not feel that lung presentation is from lupus. Hyperkalemia. : Medically treated, HD today. HTN elevated bp, IV labetalol yesteday, Increased coreg to 25bid, changed lisinopril to losartan 50 (lower risk of elevated K), and continue amlodipine. Consider using doxazosin if bp remains high. ESRD on HD, will get HD again today inlight of High K. DVT hep sq Diet renal. Medical - PN: Qual - Stroke Symptom Onset Unknown: No - VTE Deep Vein Thrombosis/Pulmonary Embolism Present on Admission: No
[2017-03-18] MEDS: IMIPENEM/CILASTATIN SODIUM 500 MG in 0.9 % SODIUM CHLORIDE 100 ML IV SCH ×2 (14:27→23:46)
--- NOTE | 2017-03-18 17:03 | Nephrology Consult Note ---
History of Present Illness - Reason for Consult Patient information: Note initiated : 03/18/17 at 4:59 pm Service Date, if different from initiated Date: [] Patient: Tigist Villagomez a 21 y/o F admitted on 03/17/17 for Weakness Cough/ Pneumonia. Chief Complaint: [] Consult date: 03/17/17 end stage renal disease, hyperkalemia Requesting physician: Alvarado Christensen - Chief Complaint fever, cough - History of Present Illness Ms Villagomez is a 21 y/o pleasant female with PMH of ESRD on HD and other multiple medical issues who is been admitted for management of PNA Patient had a complicated medical history She was recently transitioned to HD from PD last month, she later developed exit site infection and was on IV antibiotics for the same, stopped last sat She however c/o cough and fever for the last few days despite been on cefepime and vanc and went to ER for evaluation of the same CXR revealed b/l pul inifltrates s/o PNA and she is been hospitalised for the same Her mycoplasma IgM Ab is positive and she is receiving coverage for atypical PNA She states that her symptoms are a little better today She c/o cough with minimal yellow colored phlegm, no h/o hemoptysis She c/o fever no GI symptoms no LE edema CP on and off also has been having issues with anxiety no other complaints She is noted to have hyperkalemia this am and has received dialysis for the same Review of Systems All systems PM: reviewed and no additional remarkable complaints except as stated (as in HPI) Past History Past medical history: ESRD on HD at present h/o SLE and vasculitis, denied prednisone h/o uncontrolled HTN h/o anemia from CKD ho renal osteodystrophy Past surgical history: s/p tunnled cath and AVF surgery h/o PD cath placement Past family history: not pertinent Past social history: lives with her sister, currently no addictions, works at [employer] Medications and Allergies Home Medications Medication Instructions Recorded Confirmed Type calcitriol 0.25 mcg capsule 0.5 mcg PO DAILY 08/18/16 03/17/17 History lisinopril 10 mg tablet 10 mg PO DAILY 08/18/16 03/17/17 History vitamin B complex-vitamin C-folic 1 tab-cap PO QDAY 08/18/16 03/17/17 History acid 0.8 mg tablet RX: Sevelamer [Renvela] 1,600 mg PO TIDCC 11/15/16 03/17/17 History cholecalciferol (vitamin D3) 50,000 unit PO QWEEK #12 cap 12/10/16 03/17/17 Rx 50,000 unit capsule hydroxychloroquine 200 mg tablet 200 mg PO BID #60 tab 12/10/16 03/17/17 Rx RX: Calcium Carbonate [Tums] 1,000 mg CHEWED TIDCC 02/03/17 03/17/17 History RX: Carboxymethylcellulose Sodium 15 ml OP 3-4XD PRN 02/03/17 03/17/17 History [Lubricant Eye] RX: Docusate Sodium 100 mg PO DAILY 02/03/17 03/17/17 History RX: Furosemide [Lasix] 80 mg PO DAILY 02/03/17 03/17/17 History RX: Mineral Oil/Petrolatum,White 3.5 gm OP HSP PRN 02/03/17 03/17/17 History [Lubricant Eye Ointment] RX: Carvedilol [Coreg] 12.5 mg PO BIDCC #60 tablet 02/06/17 03/17/17 Rx RX: amLODIPine [Norvasc] 10 mg PO BID #60 tablet 02/06/17 03/17/17 Rx Allergies Allergy/AdvReac Type Severity Reaction Status Date / Time No Known Drug Allergies Allergy Verified 03/17/17 13:09 Exam - Vital Signs Vital signs: Temp Pulse Resp BP Pulse Ox 100.5 F H 101 H 16 129/95 99 03/18/17 16:00 03/18/17 16:00 03/18/17 16:00 03/18/17 16:00 03/18/17 16:00 - General Appearance General appearance: appears started age, chronically ill EENT: mucous membranes moist Neck: no JVD Respiratory: rales Cardiology: no rub, no edema, normal S1, normal S2 Gastrointestinal: no tenderness, no guarding Integumentary: no rash, warm and dry Neurologic: no focal deficit, no asterixis, alert and oriented x3 Musculoskeletal: no erythema, no cyanosis Psychiatric: mood/affect appropriate Results - Lab Results 03/18/17 04:00 03/18/17 04:00 Most recent lab results Calcium 9.3 mg/dl (8.6-10.4) 03/18/17 04:00 Phosphorus 4.5 mg/dL (2.7-4.5) 03/18/17 04:00 Magnesium 2.2 mg/dL (1.6-2.5) 03/18/17 04:00 Assessment and Plan (1) ESRD (end stage renal disease) on dialysis Patient dialysed today for 4 hrs using 1k/2k/2.5 ca dialysate and UF goal of 2- 3L to see if her BP control improves she will be dialysed again tomorrow per her routine schedule please dose meds to dialysis HTN: uncontrolled coreg increased to 25m bid, on losartan and amlodipine will also try challenging DW to see if this helps anemia: etiology multifactorial will ct DIETER as outpt received prbc transfusion last week renal osteodystrophy: will stop calcitriol as she will receive this on dialysis treatment ct binders PNA: she is on levaquin will follow along Status: Acute (2) Pneumonia Status: Chronic
[2017-03-18 17:50] LABS: Vancomycin,Random 22.9 ug/ml
[2017-03-18] MEDS: ONDANSETRON 4 MG/2 ML VIAL IV PRN (19:48)
[2017-03-19 05:58] LABS: Basophils # (Auto) 0 K/mcL (0.0-0.3); Basophils % (Auto) 0.4 % (0.0-2.0); Eosinophils # (Auto) 0.6 K/mcL (0.0-0.7); Granulocytes % (Auto) 53.9 % (38.0-78.0); Lymphocytes # (Auto) 1.4 K/mcL (1.5-4.8); Lymphocytes % (Auto) 24.1 % (15.5-49.0); Mean Cell Volume 92.7 fL (80.0-100.0); Mean Corpuscular HGB Conc 34.4 g/dL (31.0-36.0); Mean Corpuscular Hemoglobin 31.9 pg (26.0-34.0); Monocytes # (Auto) 0.7 K/mcL (0.1-0.9); Monocytes % (Auto) 11.6 % (1.0-12.0); Platelet Count 162 K/mcL (140-440); RBC 2.74 M/mcL (4.00-5.20); Red Cell Distribution Width 16.2 % (11.5-14.5)
[2017-03-19 06:31] LABS: ALT/SGPT 10 U/l (0-40); Albumin 3.4 gm/dL (3.2-5.2); Albumin/Globulin Ratio 1.3 (1.0-2.3); Alkaline Phosphatase 49 U/L (39-117); Bilirubin,Direct < 0.2 mg/dL (0.0-0.3); Blood Urea Nitrogen 13 mg/dl (6-20); Gamma Glutamyl Transpeptidase 19 U/L (5-36); Magnesium 2.2 mg/dL (1.6-2.5); Uric Acid 2.5 mg/dL (2.5-8.0)
[2017-03-19] MEDS: FOLIC ACID/VITAMIN B COMP W-C 1 TAB TABLET PO SCH (08:27)
[2017-03-19] MEDS: DOCUSATE SODIUM 100 MG CAPSULE PO SCH (08:27)
[2017-03-19] MEDS: FAMOTIDINE/PF 20 MG/2 ML VIAL IV SCH (08:28)
[2017-03-19] MEDS: SEVELAMER 800 MG TABLET PO SCH ×3 (08:28→17:42)
[2017-03-19] MEDS: CARVEDILOL 12.5 MG TABLET PO SCH ×2 (08:28→17:41)
[2017-03-19] MEDS: amLODIPine 10 MG TABLET PO SCH (08:28)
[2017-03-19] MEDS: CALCIUM CARBONATE 500 MG TAB.CHEW CHEWED SCH ×3 (08:28→17:42)
[2017-03-19] MEDS: LOSARTAN 50 MG TABLET PO SCH (08:28)
[2017-03-19] MEDS: HEPARIN 5,000 UNIT/ML VIAL SQ SCH (08:28)
[2017-03-19] MEDS: guaiFENesin/DEXTROMETHORPHAN ORAL SOL PO PRN (08:29)
[2017-03-19] MEDS: HYDROXYCHLOROQUINE 200 MG TABLET PO SCH (08:36)
[2017-03-19] MEDS: FUROSEMIDE 40 MG TABLET PO SCH (08:36)
[2017-03-19] MEDS ORDERED: LEVOFLOXACIN 500 MG/100 ML BAG IV SCH (09:00)
[2017-03-19] MEDS: IMIPENEM/CILASTATIN SODIUM 500 MG in 0.9 % SODIUM CHLORIDE 100 ML IV SCH (09:00)
--- NOTE | 2017-03-19 15:03 | Discharge Summary ---
Medical - DS: Prov Patient information: Note initiated : 03/19/17 at 3:02 pm Service Date, if different from initiated Date: [] Patient: Tigist Villagomez 22 y/o F admitted on 03/17/17 for Weakness Cough/ Pneumonia. Chief Complaint: [] Date of admission: 03/17/17 17:10 Discharge date: 03/19/17 Primary care physician: James Jeter Admitting clinician: Mazin Mayer Discharging clinician: Mazin Mayer Medical - DS: Meds - Discharge Medications Prescriptions: Azithromycin 250 mg PO DAILY #3 tablet Carvedilol [Coreg] 25 mg PO BID #60 tablet guaiFENesin/DEXTROMETHORPHAN [Robitussin Dm] 5 ml PO Q4HP PRN #240 ml PRN Reason: Cough Losartan [Cozaar] 50 mg PO DAILY #30 tablet Active and Home Medications: Home Medications calcitriol 0.25 mcg capsule 0.5 mcg PO DAILY 08/18/16 [History Confirmed Last Taken 03/17/17 08:00] lisinopril 10 mg tablet 10 mg PO DAILY 08/18/16 [History Confirmed 03/17/17 Last Taken 03/17/17 08:00] vitamin B complex-vitamin C-folic acid 0.8 mg tablet 1 tab-cap PO QDAY 08/18/16 [History Confirmed 03/17/17 Last Taken 03/17/17 08:00] Sevelamer [Renvela] 1,600 mg PO TIDCC 11/15/16 [History Confirmed 03/17/17 Last Taken 03/17/17 08:00] cholecalciferol (vitamin D3) 50,000 unit capsule 50,000 unit PO QWEEK #12 cap [Rx Confirmed 03/17/17 Last Taken Unknown] hydroxychloroquine 200 mg tablet 200 mg PO BID #60 tab 12/10/16 [Rx Confirmed Last Taken 03/17/17 08:00] Calcium Carbonate [Tums] 1,000 mg CHEWED TIDCC 02/03/17 [History Confirmed 03/17 Last Taken 03/17/17 08:00] Carboxymethylcellulose Sodium [Lubricant Eye] 15 ml OP 3-4XD PRN 02/03/17 [ History Confirmed 03/17/17 Last Taken Unknown] Docusate Sodium 100 mg PO DAILY 02/03/17 [History Confirmed 03/17/17 Last Taken 03/17/17 08:00] Furosemide [Lasix] 80 mg PO DAILY 02/03/17 [History Confirmed 03/17/17 Last Taken 03/17/17 08:00] Mineral Oil/Petrolatum,White [Lubricant Eye Ointment] 3.5 gm OP HSP PRN [History Confirmed 03/17/17 Last Taken Unknown] Carvedilol [Coreg] 12.5 mg PO BIDCC #60 tablet 02/06/17 [Rx Confirmed 03/17/17 Last Taken 03/17/17 08:00] amLODIPine [Norvasc] 10 mg PO BID #60 tablet 02/06/17 [Rx Confirmed 03/17/17 Last Taken 03/17/17 08:00] Medical - DS: Hosp Hospital course: Mr. Villagomez is a 22 year old Female with h/o lupus, esrd on hd, who presented to the ER with cough and fever, admitted to the hospital with diagnosis of pneumonia Pneumonia: Treated with HCAP coverage intially, vanco, levaquin and imipenum. She responded to treatment, her urine mycoplasma antibodies were positive. Blood culture negative. The patient was deemed to have Mycoplasma pneumonia. She will be treated with zithromax. Her CXR Was positive for pna, but d/d included lupus pneumonitis, alverolar hemorrhage etc, CT done which showed pneumonia vs lupus. The patients c3 however was better than last time, her c4 was normal. It was likely that she has pna for mycoplasma rather the lupus. Also she responded well to treatment. ESRD on HD, was hyperkalemic on presentation, treated with HD and kayexlate HTN uncontrolled, on amlodipine 10mg bid, coreg 12.5 bid, dose increased to 25mg bid during this stay, She was also on lisinopril which was changed to losartan 50mg. 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 Discharge diagnosis: pneumonia, esrd. - Time Spent with Patient Total time spent providing and/or coordinating discharge services: Greater than 30 minutes Medical - DS: Exam - Constitutional Vitals: Vital Signs Temp Pulse Pulse Resp BP BP Pulse Ox 03/19/17 14:58 97.4 F 88 106/78 03/19/17 14:35 89 121/90 03/19/17 14:05 88 124/97 03/19/17 13:40 86 124/100 03/19/17 13:05 84 126/95 03/19/17 12:35 83 122/90 03/19/17 12:22 100 03/19/17 12:05 97.3 F 83 127/92 03/19/17 12:01 98.0 F 19 127/92 99 03/19/17 11:51 97.6 F 83 16 126/97 99 03/19/17 08:50 97.6 F 148/108 97 03/19/17 08:00 81 18 97 03/19/17 04:00 98.0 F 88 18 133/100 99 03/18/17 23:48 98.0 F 84 16 133/98 95 03/18/17 22:08 94 03/18/17 20:00 98.6 F 99 H 16 135/105 99 03/18/17 16:00 100.5 F H 101 H 16 129/95 99 Intake and Output 03/19/17 03/19/17 03/19/17 05:59 13:59 21:59 Intake Total 480 / 480 220 / 220 Output Total 2746 / 2746 6719 / 6719 Balance 480 / 480 -2526 / -2526 -6719 / -6719 Intake: IV 100 / 100 Primaxin 500 mg In Sodium 100 / 100 Chloride 0.9% 100 ml @ 100 mls/hr IV Q12H [facility] Rx #:[id number] Oral 480 / 480 120 / 120 Output: Hemodialysis UF 2746 / 2746 6719 / 6719 Other: Meal icecream Additional comments: Constitutional; Afebrile, cooperative, alert, not in distress. Eyes- No icterus, , No periorbital swelling Ears- Ext ear normal, hearing normal to conversation. Neck- Midline trachea, supple Respiratory system: Air Entry equal on both sides, No crackles or wheezing, no rhonchi. CVS- Rate rhythm regular, S1,S2 heard, no gallop, no rub. Abdomen- Soft nontender abdomen, no organomegaly, no tenderness, no guarding or rigidity, [employer]- AOOx3, moving all extremities, no gross focal deficit noted. Medical - DS: Data Labs on day of discharge: Labs from last 24 hours 03/19/17 03/19/17 03/18/17 03:55 03:55 17:01 WBC 5.6 RBC 2.74 L Hgb 8.7 L Hct 25.4 L MCV 92.7 MCH 31.9 MCHC 34.4 RDW 16.2 H Plt Count 162 MPV 8.3 Gran % 53.9 Lymph % (Auto) 24.1 Mcnairy % (Auto) 11.6 Eos % (Auto) 10.0 H Baso % (Auto) 0.4 Gran # 3.0 Lymph # (Auto) 1.4 L Mcnairy # (Auto) 0.7 Eos # (Auto) 0.6 Baso # (Auto) 0 Sodium 136 Potassium 4.7 Chloride 96 Carbon Dioxide 26 Anion Gap 14.0 BUN 13 Creatinine 5.0 H GFR Calculation 11 Glucose 85 Uric Acid 2.5 Calcium 9.7 Phosphorus 6.2 H* Magnesium 2.2 Total Bilirubin 0.4 Direct Bilirubin < 0.2 GGT 19 AST 23 ALT 10 Alkaline Phosphatase 49 Lactate Dehydrogenase 265 H Total Protein 6.1 Albumin 3.4 Globulin 2.7 Albumin/Globulin Ratio 1.3 Triglycerides 126 Random Vancomycin 22.9 Vancomycin Dose Not Reportable Vanco Last Dose Time Not Reportable Medical - DS: A/P - Patient/Caregiver Discharge Instructions Activity: as per physical therapy, increase activity as tolerated Diet: Renal Additional Instructions: Continue with your current dialysis schedule per Dr. Renee Take Zithromax 500mg on day one, then 250mg once daily for 4 days Go to the ER if worsening symptoms, fevers or any other concerning symptom. Prescriptions: Azithromycin 250 mg PO DAILY #6 tablet Carvedilol [Coreg] 25 mg PO BID #60 tablet guaiFENesin/DEXTROMETHORPHAN [Robitussin Dm] 5 ml PO Q4HP PRN #240 ml PRN Reason: Cough Losartan [Cozaar] 50 mg PO DAILY #30 tablet - Follow up Plan Follow up with: James Jeter MD [Primary Care Provider] - 04/06/17 10:30 am (Check in at 10 :15) Disposition: Home, Self-Care Prognosis: Fair Rehab Potential: Fair I certify that the patient requires SNF services: No Overall status at discharge: patient is progressing back to baseline Medical - DS: Qual - VTE Deep Vein Thrombosis/Pulmonary Embolism Present on Admission: No
[2017-03-19] MEDS: HYDROcodone/APAP 5/325MG TABLET PO PRN (15:21)
[2017-03-19] MEDS: ONDANSETRON 4 MG/2 ML VIAL IV PRN (15:22)
--- NOTE | 2017-03-19 16:30 | Nephrology Progress Note ---
Subjective Patient information: Note initiated : 03/19/17 at 4:26 pm Service Date, if different from initiated Date: [] Patient: Tigist Villagomez 22 y/o F admitted on 03/17/17 for Weakness Cough/ Pneumonia. Chief Complaint: [] Principal diagnosis: pneumonia Interval history: no overnight events afebrile overnight still has cough BP a little better Pertinent ROS: 10 point ROS done and pertinent positive and negative documented above Objective - Vital Signs Vital signs: Vital Signs Temp Pulse Pulse Resp BP BP Pulse Ox 03/19/17 15:33 132/95 03/19/17 15:01 92/75 03/19/17 14:59 106/78 03/19/17 14:58 97.4 F 88 106/78 03/19/17 14:35 89 121/90 03/19/17 14:31 121/90 100 03/19/17 14:05 88 124/97 03/19/17 14:01 124/97 100 03/19/17 13:40 86 124/100 03/19/17 13:31 124/100 100 03/19/17 13:05 84 126/95 03/19/17 13:01 126/95 98 03/19/17 12:35 83 122/90 03/19/17 12:31 122/90 99 03/19/17 12:22 100 03/19/17 12:05 97.3 F 83 127/92 03/19/17 12:01 98.0 F 19 127/92 99 03/19/17 11:51 97.6 F 83 16 126/97 99 03/19/17 08:50 97.6 F 148/108 97 03/19/17 08:00 81 18 97 03/19/17 04:00 98.0 F 88 18 133/100 99 03/18/17 23:48 98.0 F 84 16 133/98 95 03/18/17 22:08 94 03/18/17 20:00 98.6 F 99 H 16 135/105 99 Intake and Output 03/19/17 03/19/17 03/19/17 05:59 13:59 21:59 Intake Total 480 / 480 780 / 780 Output Total 6 / 2746 6718 Balance 480 / 480 -1965 / -6718 Intake: IV 300 / 300 Primaxin 500 mg In Sodium 200 / 200 Chloride 0.9% 100 ml @ 100 mls/hr IV Q12H [facility] Rx #:[id number] Oral 480 / 480 480 / 480 Output: Hemodialysis UF 274 / 2745 Other: Meal icecream Percent of Meal Consumed 100% Feeding Ability Independent Intake & Output: Intake & Output 03/19/17 03/19/17 03/19/17 05:59 13:59 21:59 Intake Total 480 / 480 780 / 780 Output Total 2745 / 2745 Balance 480 / 480 -1965 / -1965 -6718 Intake: IV 300 / 300 Primaxin 500 mg In Sodium 200 / 200 Chloride 0.9% 100 ml @ 100 mls/hr IV Q12H [facility] Rx #:[id number] Oral 480 / 480 480 / 480 Output: Hemodialysis UF [facility] / 2745 Other: Meal icecream Percent of Meal Consumed 100% Feeding Ability Independent - General Appearance General appearance: appears started age EENT: mucous membranes moist Neck: no JVD Respiratory: wheezing Cardiology: no rub, no edema, normal S1, normal S2 Gastrointestinal: no tenderness, no guarding Integumentary: no rash, warm and dry Neurologic: no focal deficit Musculoskeletal: no erythema, no cyanosis Psychiatric: mood/affect appropriate - Lab 03/19/17 03:55 03/19/17 03:55 Most recent lab results Calcium 9.7 mg/dl (8.6-10.4) 03/19/17 03:55 Phosphorus 6.2 mg/dL (2.7-4.5) H* 03/19/17 03:55 Magnesium 2.2 mg/dL (1.6-2.5) 03/19/17 03:55 Assessment and Plan (1) ESRD (end stage renal disease) on dialysis HD today to challenge DW given uncontrolled HTN for 3.5 hrs using revaclear 300 dialyser, 3K/2.5Ca dialysate, uf goal of 2-3 L as tolerated uncontrolled HTN: advised to ensure she is aware of meds changes also will try to continue and challenge DW, if still elevated will initiate clonidine patch ensure fluid restriction and low sodium diet PNA: atypical, antibiotic per hospitalist Anemia of CKD: will resume aranesp as outpt renal osteodystrophY: advised pt to ensure she stops calcitriol at home as this will given during dialysis ct binder follow renal diet Status: Acute (2) Pneumonia Status: Chronic
[2017-03-20] MEDS ORDERED: ERGOCALCIFEROL (VITAMIN D2) 50,000 UNIT CAPSULE PO SCH (09:00)
[2017-03-23 12:20] LABS: ANCA Screen NEGATIVE (NEGATIVE); Myeloperoxidase Antibody 1.7 AI (<1.0)
== END 2017-03-19 18:00 | disposition home or self-care (01) | DRG 193 ==
LOC: ED 13:02 → ICU 17:10
PROVIDERS: ADMIT Internal Medicine; ATTEND Internal Medicine